=== PATIENT | female | born 1945 | race Caucasian/White ===

== ENCOUNTER 2019-11-27 14:47 | Outpatient (CLI) | payer OTHER, SELFPAY ==
--- NOTE | 2019-11-27 15:02 | XR_ITS ---
WS: [id number] EXAM: Chest: PA and lateral DATE OF EXAMINATION: 11/27/2019, 1511 hours COMPARISON: Chest x-ray from 11/20/2016 HISTORY: Patient is 74 years old with history of sarcoidosis. Abnormal weight loss. Cough.. FINDINGS: The heart size is normal. The mediastinal contours are normal. Pulmonary vascularity is within norm al limits. Chronic lung changes are seen. Slight hyperinflation. Slight fibrosis. Old calcified granu meet changes right mid chest with calcified lymph nodes right hilum. Additional calcified granuloma right lung apex. Multiple calcified lymph nodes are seen along the right paratracheal region and azyg os node region. No effusion, or pneumothorax. Bone density is decreased. Multilevel degenerative felix nges are seen in the spine. XR/XR chest 2V* [id number] IMPRESSION: Chronic lung changes with slight hyperinflation, fibrosis and old calcified gr anuloma changes. No acute pulmonary disease.
== END 2019-11-27 14:48 | disposition home or self-care (01) ==
LOC: RADWPI 14:47
PROVIDERS: PCP Nurse Practitioner Family; Visit Provider Nurse Practitioner Family
DX: R53.83 Other fatigue (principal); R05 Cough; D86.9 Sarcoidosis, unspecified; R63.4 Abnormal weight loss; R53.81 Other malaise; J84.10 Pulmonary fibrosis, unspecified
CPT/HCPCS: 71046

== ENCOUNTER 2019-12-04 10:47 | Outpatient (CLI) | payer MEDICARE, SELFPAY ==
--- NOTE | 2019-12-04 11:10 | XR_ITS ---
WS: [id number] ABDOMEN 2 VIEW(S) HISTORY: ABDOMINAL PAIN, BLOATING COMPARISON: None available. Diffuse increased air throughout the GI tract. Air is noted to the level of the rectum along with fec al material. Surgical sutures are noted over the central pelvis from prior colon surgery. No free air or mass identified. Prior cholecystectomy. No bone abnormality. XR/XR abdomen min 2V [id number] IMPRESSION: Diffuse increased air throughout the GI tract. No air-fluid levels or obstructi on at this time. These may be early changes of a partial obstruction or ileus. No free air.
== END 2019-12-04 10:48 | disposition home or self-care (01) ==
LOC: RADWPI 10:55
PROVIDERS: Family Provider Nurse Practitioner Family; PCP Nurse Practitioner Family; Visit Provider Nurse Practitioner Family
DX: R10.9 Unspecified abdominal pain (principal); R14.0 Abdominal distension (gaseous)
CPT/HCPCS: 74019

== ENCOUNTER → 2020-01-01 13:48 | Outpatient (BNVA) | payer MEDICARE, SELFPAY | PROVIDERS: Family Provider Nurse Practitioner Family; PCP Nurse Practitioner Family; Referring Provider Nurse Practitioner Family; Visit Provider Internal Medicine | DX: R00.1 Bradycardia, unspecified (principal); R63.4 Abnormal weight loss; R61 Generalized hyperhidrosis; D86.9 Sarcoidosis, unspecified; I10 Essential (primary) hypertension | CPT/HCPCS: 84439; 84443 ==

== ENCOUNTER 2020-03-11 11:23 | Outpatient (CLI) | payer MEDICARE, SELFPAY ==
[2020-03-11 12:34] LABS: Eosinophils % 12.9 %; Monocytes % 6.6 %; Nucleated Red Blood Cells % 0 %
[2020-03-11 12:49] LABS: Basophils % 0.6 %; Eosinophils # 0.8 10^3/uL (0.0-0.8); Hematocrit 27.1 % (37.0-47.0); Hemoglobin 8.5 g/dL (11.5-15.3); Lymphocytes # 1.4 10^3/uL (0.8-4.8); Lymphocytes % 21.8 %; Mean Corpuscular HGB Conc 31.4 g/dL (30.0-36.0); Mean Corpuscular Hemoglobin 28.3 pg (28.0-34.0); Mean Corpuscular Volume 90.3 fL (81-99); Mean Platelet Volume 11.9 fL (7.4-10.4); Monocytes # 0.4 10^3/uL (0.2-0.9); Neutrophils # 3.57 10^3/uL (1.8-7.7); Neutrophils % 57.8 %; Platelet Count 244 10^3/cmm (130-400); Red Cell Distribution Width 15.4 % (12.1-15.1); White Blood Count 6.2 10^3/uL (4.0-10.0)
[2020-03-11 12:56] LABS: Albumin Level 3.2 g/dL (3.5-5.2); Anion Gap 9.8 (5-19); Blood Urea Nitrogen 32 mg/dL (8-23); Calcium 9.3 mg/dL (8.5-10.5); Carbon Dioxide 28 mmol/L (22-29); Chloride 107 mmol/L (98-107); Glucose 101 mg/dL (65-115); Phosphorus 3.2 mg/dL (2.5-4.5); Potassium 4.8 mmol/L (3.5-5.1); Sodium 140 mmol/L (136-145)
[2020-03-11 13:11] LABS: Calcium 9.6 mg/dL (8.5-10.5); Parathyroid Hormone 33.3 pg/mL (15-65)
== END 2020-03-11 11:24 | disposition home or self-care (01) ==
LOC: LAB 11:27
PROVIDERS: PCP Internal Medicine; Visit Provider Internal Medicine Nephrology
DX: N18.30 Chronic kidney disease, stage 3 unspecified (principal)
CPT/HCPCS: 80069; 80197; 82310; 83970; 85025

== ENCOUNTER 2020-03-12 11:36 | Outpatient (CLI) | payer MEDICARE, SELFPAY ==
[2020-03-12 12:57] LABS: Creatinine Urine, Random 16 mg/dL (28-217)
[2020-03-12 12:58] LABS: Microalbum Creatinine Ratio Ur 62 mg/dL (0-20); Microalbumin Random Urine < 1 ug/dL (0-20)
== END 2020-03-12 11:37 | disposition home or self-care (01) ==
LOC: LAB 11:39
PROVIDERS: PCP Internal Medicine; Visit Provider Internal Medicine Nephrology
DX: N18.30 Chronic kidney disease, stage 3 unspecified (principal)
CPT/HCPCS: 82044

== ENCOUNTER 2020-03-16 11:40 | Outpatient (CLI) | payer MEDICARE, SELFPAY ==
[2020-03-16 13:28] LABS: Ferritin 17 ng/mL (15-150); Iron 47 ug/dL (37-145); Percent Saturation 12.4 % (20-50); Total Iron Binding Capacity 379 mcg/dl; Unsaturated Iron Binding 332 ug/dL (112-347); Vitamin B12 599 pg/mL (232-1245)
[2020-03-16 14:52] LABS: Folate Level 9.7 ng/mL (4.8-37.3)
== END 2020-03-16 11:41 | disposition home or self-care (01) ==
LOC: LAB 11:41
PROVIDERS: PCP Internal Medicine; Visit Provider Internal Medicine Nephrology
DX: N18.32 Chronic kidney disease, stage 3b (principal)
CPT/HCPCS: 82607; 82728; 82746; 83540; 83550

== ENCOUNTER → 2020-03-31 13:26 | Outpatient (BNVA) | payer MEDICARE, SELFPAY | PROVIDERS: PCP Internal Medicine; Visit Provider Surgery | DX: Z20.828 Contact with and (suspected) exposure to other viral communicable diseases (principal); R63.4 Abnormal weight loss | CPT/HCPCS: 87635 ==

== ENCOUNTER 2020-04-16 13:13 | Outpatient (CLI) | payer MEDICARE, SELFPAY ==
[2020-04-16 14:37] LABS: Basophils % 0.3 %; Eosinophils # 0.7 10^3/uL (0.0-0.8); Hematocrit 32.3 % (37.0-47.0); Hemoglobin 9.9 g/dL (11.5-15.3); Lymphocytes # 1.3 10^3/uL (0.8-4.8); Lymphocytes % 21.7 %; Mean Corpuscular HGB Conc 30.7 g/dL (30.0-36.0); Mean Corpuscular Hemoglobin 29.6 pg (28.0-34.0); Mean Corpuscular Volume 96.7 fL (81-99); Mean Platelet Volume 11.1 fL (7.4-10.4); Monocytes # 0.4 10^3/uL (0.2-0.9); Monocytes % 5.8 %; Nucleated Red Blood Cells % 0 %; Platelet Count 271 10^3/cmm (130-400); Red Blood Count 3.34 10^6/uL (4.1-5.3); Red Cell Distribution Width 16.4 % (12.1-15.1); White Blood Count 6.1 10^3/uL (4.0-10.0)
[2020-04-16 15:04] LABS: Magnesium 1.6 mg/dL (1.7-2.3)
[2020-04-16 15:17] LABS: Calcium 9.6 mg/dL (8.5-10.5)
[2020-04-16 15:19] LABS: Folate Level 9.5 ng/mL (4.8-37.3)
[2020-04-16 15:20] LABS: Alanine Aminotransferase 17 U/L (0-33); Albumin Level 3.2 g/dL (3.5-5.2); Alkaline Phosphatase 75 IU/L (35-105); Anion Gap 9.9 (5-19); Aspartate Amino Transferase 32 U/L (0-32); Blood Urea Nitrogen 26 mg/dL (8-23); Calcium 9.7 mg/dL (8.5-10.5); Carbon Dioxide 30 mmol/L (22-29); Chloride 107 mmol/L (98-107); Chol HDL Ratio 2.57 mg/dL (0.0-4.40); Cholesterol 95 mg/dL (0-200); Globulin 2.3 g/dL (1.3-4.6); Glucose 88 mg/dL (65-115); HDL Cholesterol 37 mg/dL (60-100); Iron 77 ug/dL (37-145); LDL Cholesterol Calculated 37 mg/dL (50-129); Osmolality Calculated 300 mOsm/kg (285-295); Percent Saturation 20.8 % (20-50); Phosphorus 2.9 mg/dL (2.5-4.5); Potassium 3.9 mmol/L (3.5-5.1); Sodium 143 mmol/L (136-145); Thyroid Stimulating Hormone 1.72 uIU/mL (0.27-4.20); Total Bilirubin 0.2 mg/dL (0.15-1.2); Total Iron Binding Capacity 370 mcg/dl; Total Protein 5.5 g/dL (6.6-8.7); Triglycerides 103 mg/dL (0-150); Unsaturated Iron Binding 293 ug/dL (112-347); Vitamin B12 698 pg/mL (232-1245)
[2020-04-16 15:47] LABS: Parathyroid Hormone 29.6 pg/mL (15-65)
[2020-04-17 01:01] LABS: Estmated Average Glucose 80; Hemoglobin A1C 4.4 % (4.0-6.0)
== END 2020-04-16 13:14 | disposition home or self-care (01) ==
PROVIDERS: PCP Internal Medicine; Visit Provider Surgery
DX: R63.4 Abnormal weight loss (principal); D64.9 Anemia, unspecified; E11.9 Type 2 diabetes mellitus without complications; I10 Essential (primary) hypertension
CPT/HCPCS: 36415; 80053; 80061; 82310; 82607; 82746; 83036; 83540; 83550; 83735; 83970; 84100; 84443; 85025

== ENCOUNTER 2020-05-19 07:32 | Day surgery (SDC) | payer MEDICARE, SELFPAY ==
[2020-05-17 15:32] VITALS: BMI 32.5
[2020-05-19 08:18] VITALS: BP 184/72; PULSE 80; RESP 16; TEMP 36.3; O2SAT 100
[2020-05-19] MEDS: sodium chloride 0.9% 1,000 ML 30 ML IV (08:42)
--- NOTE | 2020-05-19 09:02 | P.HP_ITS ---
Same Day Surgery H&P Indication for Procedure/HPI DATE OF PROCEDURE: May 19, 2020 CHIEF COMPLAINT/INDICATIONFOR SURGICAL PROCEDURE: Weight loss and anemia PREOP DIAGNOSIS: Nonintentional weight loss PLANNED PROCEDRUE: Operation Date: 05/19/20 08:45 Proposed Procedures p EGD 15171 17524 R63.4 K59.00(Not Applicable) - Lon Varghese MD s Colonoscopy(Not Applicable) - Lon Varghese MD comes today as a follow-up as she was supposed to get a colonoscopy by me at some point but in the interim she had cardiac symptoms in the form of bradycardia and she has been following with Dr. 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 Patient reports that she had a colonoscopy about 3 years ago at the time where she had her colon resection for complicated diverticulitis as much as I collected from the encounter, as I did not receive yet her operative report from [place].Because of the cardiac event patient's colonoscopy was postponed and in the interim she has been showing signs of anemia and nonintentional weight loss in the form of 25 pounds over the last short period of time. Patient comes today as a follow-up Escorted by her spouse. Interim history 05/19/2020 Comes today for EGD and colonoscopy due to her nonintentional weight loss and anemia. ROS All systems have been reviewed negative except as per the above or per problem list Medications/Allergies* Home Medications Medication Instructions Recorded Confirmed Type aspirin 81 mg tablet,delayed 81 mg PO DAILY 12/22/19 05/19/20 History release fenofibrate 150 mg capsule 150 mg PO DAILY 12/22/19 05/17/20 History fluticasone propionate 50 2 spray INTRANASAL DAILY 12/22/19 05/17/20 History mcg/actuation nasal spray,suspension furosemide 20 mg tablet 20 mg PO DAILY 12/22/19 05/17/20 History magnesium 250 mg tablet 250 mg PO DAILY 12/22/19 05/17/20 History selenium 200 mcg capsule 200 mcg PO DAILY 03/18/20 05/17/20 History polysaccharide iron complex 150 mg PO BID 05/19/20 05/19/20 History [Poly-Iron] Allergies/Adverse Reactions Allergy/AdvReac Type Severity Reaction Status Date / Time morphine Allergy Severe ALGY-Anaphy Verified 05/19/20 09:05 laxis Penicillins Allergy Severe ALGY-Hives Verified 05/19/20 09:05 Current Medications: Generic Name Dose Route Start Last Admin Trade Name Viridiana PRN Reason Stop Dose Admin Sodium Chloride 1,000 mls @ 30 mls/hr 05/19/20 08:15 05/19/20 08:42 Sodium Chloride 0.9% IV 05/20/20 08:14 30 mls/hr .Q24H GLORIA Administration Pertinent History/Comorbid Conditions* Medical History (Updated 02/04/20 @ 16:06 by Juan Kelly M.D) Abnormal weight loss Bloating Surgical History (Updated 01/01/20 @ 13:36 by Juan Kelly M.D) History of laparoscopic cholecystectomy Family History (Updated 12/22/19 @ 11:25 by Isa Fajardo RN) Denies family history of Anesthesia complication Bleeding disorder Social History Smoking and tobacco status: never smoked Second hand smoke exposure: No Alcohol intake: never Adopted: No Caregiver/support person: Yes Lives independently: Yes Household members: spouse Housing: House Marital status: service: No Current occupational status: retired Current occupational exposures/hazards: No Pets and animals: No History of recent travel: No Sexually active: No Current gender identity: Female Tessa/Spiritism: Sikhism Pertinent Exam Findings alert, oriented x 3, clear to auscultation bilaterally, regular rate & rhythm and procedure specific exam findings (Abdominal examination nontender nondistended soft) Recommendations Surgery/Procedure today (EGD and colonoscopy with possible biopsy) Other Plans: Plan of care; After thorough history and physical examination and reviewing the chart, plan to perform a diagnostic esophagogastroduodenoscopy and diagnostic colonoscopy with possible biopsy and possible polypectomy. I discussed with the patient in detail the risks,benefits,alternatives and indications.The risk of aspiration, bleeding, soft tissue injury, perforation of the stomach/esophagus/colon and other potential concomitant complications were explained to the patient in details also the potential need for Thoracotomy and or Laproscoy/Laparotomy to repair any related complications including but not limited to colectomy and or Closotomy. The patient understood this well and did agree to proceed. Rationale was carefully and clearly discussed with the patient.Appropriate informed consent have been reviewed and signed Verbal and written Instructions were given to the patient for colonoscopy prep Coding Level of Care Code Acute Tmd Teacher Assistant for g Fwd
--- NOTE | 2020-05-19 10:03 | P.ANESASSM_ITS ---
Pre-Anesthetic Assessment Pre-Anesthetic Assessment: Height/Weight: Height 1.57 m Weight 80.739 kg Temp Pulse Resp BP Pulse Ox 97.3 F L 80 16 184/72 100 05/19/20 08:18 05/19/20 08:18 05/19/20 08:18 05/19/20 08:18 05/19/20 08:18 Preop Diagnosis: Nonintentional weight loss Proposed Procedure: Operation Date: 05/19/20 08:45 Proposed Procedures p EGD 86005 32155 R63.4 K59.00(Not Applicable) - Lon Varghese MD s Colonoscopy(Not Applicable) - Lon Varghese MD Was Beta Radu taken within 24 hours: N/A Last intake: Intake Last Liquid Date 05/18/20 Last Liquid Time 18:00 Last Solid Date 05/17/20 Last Solid Time 19:00 Social: Social History: No alcohol and No tobacco Exam: Pre-Anes Outpt Exam: alert, oriented x 3, clear to auscultation bilaterally and regular rate & rhythm Airway: Submandibular: WNL Cervical ROM: WNL MP: 2 Dentition: Full CV/HEM: CV/HEM: HTN Musc/skel: Comments: Sarcoid Anesthetic Plan: ASA status: 3 Anesthesia: MAC Risk of > 500 ml blood loss (7ml/kg in children): No Meds/Allergies Current Medications: Current Medications Generic Name Dose Route Start Last Admin Trade Name Freq PRN Reason Stop Dose Admin Sodium Chloride 1,000 mls @ 30 ml s/hr 05/19/20 08:15 05/19/20 08:42 Sodium Chloride 0.9% IV 05/20/20 08:14 30 mls/hr .Q24H GLORIA Administration PFSH Anesthesia PFSH: Medical History (Updated 04/16/20 @ 13:42 by Estrella Chew LPN) Abnormal weight loss Bloating Surgical History History of laparoscopic cholecystectomy Family History Denies family history of Anesthesia complication Bleeding disorder Social History Smoking and tobacco status: never smoked Second hand smoke exposure: No Alcohol intake: never Adopted: No Caregiver/support person: Yes Lives independently: Yes Household members: spouse Housing: House Marital status: service: No Current occupational status: retired Current occupational exposures/hazards: No Pets and animals: No History of recent travel: No Sexually active: No Current gender identity: Female Tessa/Yazidi: Denominational Data Anesthesia Cardiac Studies: Cardiac Event Monitor 01/02/20
--- NOTE | 2020-05-19 10:46 | ANE.PACU2 ---
Inpatient post-anesthesia follow up: Airway intact: Yes Vital signs: Temperature 97.3 F Pulse Rate 80 Respiratory Rate 16 Blood Pressure 184/72 Pulse Oximetry 100 Oxygen Delivery Me thod Room Air Oxygen Flow Rate Fraction of Inspir ed Oxygen Hydration adequate: Yes Nausea and vomiting: No Pain level: 1 Mental status: Baseline
[2020-05-19 10:47] VITALS: BP 125/57; PULSE 74; RESP 18; TEMP 36.2; O2SAT 96
[2020-05-19 11:28] VITALS: BP 149/89; PULSE 78; RESP 18; O2SAT 96
--- NOTE | 2020-05-19 11:57 | ANE.PACU2 ---
Inpatient post-anesthesia follow up: Airway intact: Yes Vital signs: Temperature 97.2 F Pulse Rate 78 Respiratory Rate 18 Blood Pressure 149/89 Pulse Oximetry 96 Oxygen Delivery Me thod Room Air Oxygen Flow Rate Fraction of Inspir ed Oxygen Hydration adequate: Yes Nausea and vomiting: No Pain level: 1 Mental status: Baseline
[2020-05-20 06:03] LABS: H. Pylori / CLO Test Negative
== END 2020-05-19 11:20 | disposition home or self-care (01) ==
PROVIDERS: PCP Internal Medicine; Visit Provider Surgery
PROC: 0DJ08ZZ Inspection of Upper Intestinal Tract, Via Natural or Artificial Opening Endoscopic (ICD-10-PCS; CPT 43235; principal; 2020-05-19 08:45)
PROC: 0DJD8ZZ Inspection of Lower Intestinal Tract, Via Natural or Artificial Opening Endoscopic (ICD-10-PCS; CPT 45378; 2020-05-19 08:45)
DX: R63.4 Abnormal weight loss (principal); K44.9 Diaphragmatic hernia without obstruction or gangrene; K21.9 Gastro-esophageal reflux disease without esophagitis; K29.70 Gastritis, unspecified, without bleeding; K29.80 Duodenitis without bleeding; T18.128A Food in esophagus causing other injury, initial encounter; Z68.32 Body mass index [BMI] 32.0-32.9, adult; D64.9 Anemia, unspecified; Z79.82 Long term (current) use of aspirin; I10 Essential (primary) hypertension; Z87.19 Personal history of other diseases of the digestive system
CPT/HCPCS: 12345; 43239; 45378; 87077; J2704; J7030

== ENCOUNTER 2020-05-31 10:50 | Outpatient (CLI) | payer MEDICARE, SELFPAY ==
--- NOTE | 2020-05-31 11:29 | XR_ITS ---
WS: [id number] LUMBAR SPINE: 5 VIEWS TECHNIQUE: AP, obliques, lateral and L5-S1 spot. HISTORY: LOW BACK PAIN, CHRONIC COMPARISON: None available. Mild LEFT convex curvature the lumbar spine. 5 mm anterolisthesis of L4. Facet joint arthritis is mod erate at L5-S1. Diffuse osteopenia with no fractures. Small endplate osteophytes. The lumbar spine. M ild bilateral foraminal stenosis at L4-5 and L5-S1. No fracture. SI joints are symmetric bilaterally. No soft tissue abnormalities. Prior cholecystectomy. Increased air throughout the GI tract. XR/XR lumbar spine min 4V [id number] IMPRESSION: 1. Moderate degenerative changes throughout the lumbar spine with no fracture. 2. Bilateral foraminal narrowing at L4-5 and L5-S1. 3. Prior cholecystectomy.
== END 2020-05-31 10:51 | disposition home or self-care (01) ==
PROVIDERS: PCP Internal Medicine; Visit Provider Nurse Practitioner Family
DX: M54.5 Low back pain (principal); Z90.49 Acquired absence of other specified parts of digestive tract
CPT/HCPCS: 72110

== ENCOUNTER 2020-06-24 09:50 | Outpatient (CLI) | payer MEDICARE, SELFPAY ==
--- NOTE | 2020-06-24 09:55 | US_ITS ---
WS: [id number] ULTRASOUND ABDOMEN CLINICAL INFORMATION: ABDOMINAL PAIN/BLOATING COMPARISON: None. FINDINGS: Suggestion of a 2 mm calculus in the distal common bile duct head of the pancreas. This is of indeterminate clinical significance. This can be further evaluated with MRCP Liver Size: Normal. Craniocaudal length: 13.6 cm. Echogenicity: Normal. Surface nodularity: None. Mass (size and location): None. Bile ducts Intrahepatic ducts: Normal. Common bile duct diameter: 0.7 cm. Gallbladder Prior cholecystectomy. Pancreas Normal as visualized. Spleen Splenomegaly: None. Craniocaudal length: 9.5 cm. Right kidney: Normal. Hydronephrosis: None. Size: 8.8 cm x 4.4 cm x 4.4 cm Left kidney: Normal. Hydronephrosis: None. Size: 9.7 cm x 3.9 cm x 4.2 cm. Abdominal aorta and IVC Visualized portions are normal. Ascites: None. US/US abdomen complete* [id number] IMPRESSION: 1. Normal liver. 2. Suggestion of a 2 mm calculus in the distal common bile duct head of the pa ncreas. This is of indeterminate clinical significance. This can be further oneil luated with MRCP 3. Prior cholecystectomy. Normal common bile duct measuring 6.6 mm. No intrahe patic biliary ductal dilatation. 4. No hydronephrosis in either kidney.
== END 2020-06-24 09:51 | disposition home or self-care (01) ==
LOC: RAD 09:51
PROVIDERS: PCP Nurse Practitioner Family; Visit Provider Nurse Practitioner Family
DX: R10.9 Unspecified abdominal pain (principal); R14.0 Abdominal distension (gaseous); Z90.49 Acquired absence of other specified parts of digestive tract
CPT/HCPCS: 76700

== ENCOUNTER 2020-07-12 10:34 | Outpatient (CLI) | payer MEDICARE, SELFPAY ==
--- NOTE | 2020-07-12 11:15 | MR_ITS ---
WS: [id number] MRI/MRCP OF THE ABDOMEN WITHOUT GADOLINIUM ENHANCEMENT TECHNIQUE: Thin and thick slab MRCP, Axial T2, Coronal MRCP, Axial Dual Echo, and Axial 2-D Fiesta imaging was obtained. Coronal 2-D Fiesta imaging. CLINICAL INFORMATION: CALCULUS OF BILE DUCT W/O CHOLECYSTITIS OR OBSTRUCTION COMPARISON: Ultrasound June 24, 2020 FINDINGS: Prior cholecystectomy. Mild fatty atrophy of the pancreas. Bilateral renal cortical atrophy. No intra hepatic biliary ductal dilatation. Common bile duct is normal in appearance. No bile duct dilatation. No abnormal foci to correspond to the possible 2 mm calculus on the recent ultrasound. Normal taperi ng of the common bile duct distally. Head of the pancreas appears normal. Tiny right pleural effusion . No hydronephrosis in either kidney. Normal caliber abdominal aorta. Adrenal glands appear normal. MR/MR MRCP [id number] Impression: 1. No evidence of choledocholithiasis. No filling defects to correspond to the tiny focus seen on the recent ultrasound. Normal common bile duct. 2. Pancreas is normal in appearance. 3. No intrahepatic biliary ductal dilatation. 4. No other significant findings.
== END 2020-07-12 10:35 | disposition home or self-care (01) ==
LOC: RADSHAW 10:37
PROVIDERS: PCP Nurse Practitioner Family; Visit Provider Internal Medicine
DX: K80.50 Calculus of bile duct without cholangitis or cholecystitis without obstruction (principal); R93.5 Abnormal findings on diagnostic imaging of other abdominal regions, including retroperitoneum; R10.9 Unspecified abdominal pain; R14.0 Abdominal distension (gaseous)
CPT/HCPCS: 74181

== ENCOUNTER 2020-08-18 12:28 | Outpatient (CLI) | payer MEDICARE, SELFPAY ==
--- NOTE | 2020-08-18 12:50 | CT_ITS ---
WS: [id number] CT ABDOMEN PELVIS TECHNIQUE: Noncontrast CT of the abdomen and pelvis with coronal and sagittal reformatted images. CLINICAL INFORMATION: NAUSEA AND VOMITING;ABDOMINAL PAIN COMPARISON: MRCP 10 Aug 2020 DLP: 415.[address] scans at [facility] use at least one of these dose optimization techniques: automat ed exposure control; mA and/or kV adjustment per patient size (includes targeted exams where dose is matched to clinical indication); or iterative reconstruction. FINDINGS: Hepatic and splenic granulomas. Normal noncontrast liver. No intrahepatic biliary ductal dilatation. Prior cholecystectomy. Fatty atrophy pancreas. Bilateral renal cortical atrophy. No hydronephrosis. Emphysematous changes in the lung bases. Normal GE junction. Adrenal glands are normal. No hydronephr osis. Normal caliber abdominal aorta. Mild to moderate aortic calcification. Diffuse body wall anasarca. Moderate distention of small bowel loops in the upper abdomen midabdomen with air-fluid levels. Persistent air within the colon. Hysterectomy. Trace free fluid in the pelvis. Grade 1 anterolisthesis L4 on L5. A few prominent lymph nodes along the central mesentery likely reac tive. CT/CT abdomen pelvis wo con [id number] IMPRESSION: 1. Moderate distention small bowel loops in the upper and midabdomen with air- fluid levels. Persistent air within the colon. No visualized transition point. Findings can be seen with adynamic ileus versus developing partial small bowel obstruction. Recommend interval follow-up if persistent symptoms 2. Delayed gastric emptying with majority of the oral contrast in the stomach and proximal duodenum. 3. No free air. 4. A few prominent lymph nodes along the mesenteric root likely reactive. 5. Prior hysterectomy. Trace free fluid in the cul-de-sac. 6. Prior cholecystectomy. 7. Normal caliber abdominal aorta. 8. No hydronephrosis in either kidney. Mild renal cortical atrophy.
[2020-08-18] MEDS: iohexol 300 mg/mL 50 mL Btl PO (14:18)
== END 2020-08-18 12:29 | disposition home or self-care (01) ==
LOC: RADWPI 12:31
PROVIDERS: PCP Internal Medicine; Visit Provider Internal Medicine
DX: R11.2 Nausea with vomiting, unspecified (principal); R10.9 Unspecified abdominal pain; N26.1 Atrophy of kidney (terminal); Z90.49 Acquired absence of other specified parts of digestive tract; Z90.710 Acquired absence of both cervix and uterus
CPT/HCPCS: 74176; Q9967

== ENCOUNTER 2020-08-19 07:45 | Outpatient (CLI) | payer MEDICARE, SELFPAY ==
--- NOTE | 2020-08-19 07:51 | NM_ITS ---
WS: [id number] NUCLEAR MEDICINE GASTRIC EMPTYING EXAMINATION HISTORY: NAUSEA VOMITING/ABDOMINAL PAIN COMPARISON: CT 08/18/2020 TECHNIQUE: The patient ingested a meal containing 1.0 mCi of Tc 99m sulfur colloid mixed with eggs. The patient was placed in supine position and imaging over the abdomen was performed for a total of 1 20 minutes. Computer acquisition with the region of interest placed over the stomach to evaluate man andreea emptying half-time. Delayed excretion of the food products from the stomach. At 2 hours only 30% has been excreted from t he stomach. This is consistent with moderate delay in emptying of the stomach. NM/[place] [id number] IMPRESSION: Moderate gastroparesis. Only 30% has emptied from the stomach at 2 hours.
== END 2020-08-19 07:46 | disposition home or self-care (01) ==
LOC: NM 07:48
PROVIDERS: PCP Internal Medicine; Visit Provider Internal Medicine
DX: R11.2 Nausea with vomiting, unspecified (principal); R10.9 Unspecified abdominal pain; K31.84 Gastroparesis
CPT/HCPCS: 78264; A9541

== ENCOUNTER 2020-08-20 13:27 | Outpatient (CLI) | payer MEDICARE, SELFPAY ==
--- NOTE | 2020-08-20 13:32 | XR_ITS ---
WS: [id number] Bone mineral density performed on a [employer], 08/20/2020 Clinical data: NATURAL AGE RELATED MENOPAUSAL STATE Findings: The first 4 lumbar vertebral bodies demonstrated the bone mineral density of 1.313 g/cm2 for a young adult T score of 1.1. Measurement of the left hip reveals a bone mineral density of 1.006 g/cm2 with a young adult T score of 0.0. Measurement of the right hip reveals the bone mineral density of 1.041 g/cm2 for young adult T score of 0.3. XR/XR DEXA axial skeleton* [id number] Impression: Normal bone mineral density of the lumbar spine and both hips.
== END 2020-08-20 13:28 | disposition home or self-care (01) ==
PROVIDERS: PCP Internal Medicine; Visit Provider Internal Medicine
DX: Z78.0 Asymptomatic menopausal state (principal)
CPT/HCPCS: 77080

== ENCOUNTER 2020-09-02 15:37 | Outpatient (CLI) | payer MEDICARE, SELFPAY ==
--- NOTE | 2020-09-02 15:51 | USCV_ITS ---
Elizabeth Sanders Age: 75 Gender: F : 1945 Exam Date: 09/02/2020 16:00 Ordering Phys: Rima Brown MD Technologist: Caroline Ferris Exam Location: [facility] [place] Indication: Murmur BP: 116 / 60 HR: 69 Rhythm: Sinus Technical Quality: Good MEASUREMENTS (Male / Female) Normal Values 2D ECHO LV Diastolic Diameter PLAX 4.2 cm 4.2 - 5.9 / 3.9 - 5.3 cm LV Systolic Diameter PLAX 2.4 cm LV Chamber Size 3.7 cm IVS Diastolic Thickness 1.2 cm 0.6 - 1.0 / 0.6 - 0.9 cm IVS Systolic Thickness 1.9 cm LVPW Diastolic Thickness 1.0 cm 0.6 - 1.0 / 0.6 - 0.9 cm LVPW Systolic Thickness 1.4 cm RV Chamber Size 2.3 cm LVOT Diameter 1.7 cm LV Ejection Fraction 2D Teich 73.9 % LV Ejection Fraction MOD 2C 82.7 % LV Ejection Fraction 2C AL 85.5 % LA Diameter 3.2 cm LA Width 2.6 cm LA Height 5.5 cm RA Width 2.5 cm RA Height 5.0 cm Aorta at Sinotubular Diameter 2.3 cm M-MODE LV Diastolic Diameter MM 5.0 cm 4.2 - 5.9 / 3.9 - 5.3 cm LV Systolic Diameter MM 2.7 cm LV Ejection Fraction MM Teich 76.5 % IVS Diastolic Thickness MM 1.0 cm 0.6 - 1.0 / 0.6 - 0.9 cm IVS Systolic Thickness MM 1.5 cm LVPW Diastolic Thickness MM 1.0 cm 0.6 - 1.0 / 0.6 - 0.9 cm LVPW Systolic Thickness MM 1.7 cm RV Diastolic Diameter MM 0.9 cm Aortic Annulus Diameter 3.0 cm LA Ao Ratio MM 1.4 MV E Point Septal Separation 0.3 cm DOPPLER AV Peak Velocity 181.0 cm/s LVOT Peak Velocity 152.0 cm/s AV Area Cont Eq vti 2.2 cm squared AV Area Cont Eq pk 2.0 cm squared MV Area PHT 4.1 cm squared Mitral E to A Ratio 0.9 MV E' Velocity 65.5 cm/s Mitral E to MV E' Ratio 14.5 Mitral E to LV E' Lateral Ratio 13.5 Mitral E to LV E' Septal Ratio 15.8 TR Peak Velocity 295.3 cm/s TR Peak Gradient 34.9 mmHg TR Mean Velocity 231.5 cm/s TR Mean Gradient 22.3 mmHg TR Velocity Time Integral 95.5 cm TV Peak E Velocity 52.0 cm/s Right Atrial Pressure 3.0 mmHg Pulmonary Artery Systolic Pressu 37.9 mmHg PV Peak Velocity 121.0 cm/s RV Acceleration Time 0.1 s RV Ejection Time 0.3 s RV AcT/ET 0.5 FINDINGS Left Ventricle Normal left ventricular size, systolic function and mildly increased wall thickness, with no regional wall motion abnormalities. Left ventricular ejection fraction is estimated at 75 %. Normal diastolic function. Right Ventricle Normal right ventricular size and systolic function. Right ventricular systolic pressure 41 mmHg. Right Atrium Normal right atrial size. Left Atrium Normal left atrial size. Mitral Valve Structurally normal mitral valve. No mitral valve stenosis. Mild to moderate mitral valve regurgitation. Aortic Valve Structurally normal trileaflet aortic valve. No aortic valve stenosis. No aortic valve regurgitation. Tricuspid Valve Structurally normal tricuspid valve. No tricuspid valve stenosis. Mild tricuspid valve regurgitation. Pulmonic Valve Structurally normal pulmonic valve. No pulmonary valve stenosis. Trace pulmonary valve regurgitation. Pericardium No pericardial effusion. Aorta Normal size aortic root and proximal ascending aorta. Normal sized inferior vena cava with normal respiratory variation. CONCLUSIONS 1. Normal left ventricular size, systolic function and wall thickness, with no regional wall motion abnormalities. Left ventricular ejection fraction is estimated at 75 %. Normal diastolic function. 2. Normal right ventricular size and systolic function. 3. Mild to moderate mitral valve regurgitation. 4. Mild tricuspid valve regurgitation. 5. Pulmonary artery pressure estimated at 41 mm Hg. 6. When compared to previous echocardiogram dated 11/21/2016, there may not have been any significant change. Madeleine Mahan MD (Electronically Signed) Final Date: 05 Sep 2020 18:20 S
== END 2020-09-02 15:38 | disposition home or self-care (01) ==
LOC: RAD 15:40
PROVIDERS: PCP Internal Medicine; Visit Provider Internal Medicine
DX: R01.1 Cardiac murmur, unspecified (principal); I34.0 Nonrheumatic mitral (valve) insufficiency; I07.1 Rheumatic tricuspid insufficiency
CPT/HCPCS: 93306

== ENCOUNTER 2020-09-12 18:22 | Emergency (ER) | payer MEDICARE, SELFPAY ==
[2020-09-12 18:45] VITALS: BP 164/73; PULSE 86; RESP 18; TEMP 39.2; O2SAT 95; BMI 22.6
--- NOTE | 2020-09-12 19:20 | XRR_ITS ---
PROCEDURE INFORMATION: Exam: XR Chest Exam date and time: 09/12/2020 7:32 PM Age: 75 years old Clinical indication: Fever TECHNIQUE: Imaging protocol: XR of the chest. Views: 1 view. COMPARISON: CR XR chest 2V* [id number] 11/27/2019 3:08 PM FINDINGS: Lungs: Densely calcified circumscribed right lung granuloma is stable. No focal airspace consolidation. No vascular dilation. Pulmonary interstitium is unremarkable. Pleural spaces: Unremarkable. No pleural effusion. No pneumothorax. Heart/Mediastinum: Unremarkable. No cardiomegaly. Bones/joints: Unremarkable. XR/XR chest 1V portable [id number] IMPRESSION: 1. No acute findings. 2. No changes from comparison.
[2020-09-12] MEDS: acetaminophen 325 mg Tablet 650 MG PO (19:31)
--- NOTE | 2020-09-12 19:35 | ED_ITS ---
HPI - Fever General: Chief Complaint: Fever Stated Complaint: FEVER Time Seen by Provider: 09/12/20 19:20 History of Present Illness: HPI Narrative: 75-year-old female comes in today for concerns of chills and shaking. Patient reports that she has had some chi lls with some shaking throughout the day but it was really worse tonight and she called EMS for assistance. Arrival by EMS it was noted patient had 102 fever. Patient was brought to the ER for further evaluation. Patient denies any cough, shortness of breath, or changes in bowel or urine. Patient does have a history of gastritis that she is being treated for and chronic kidney disease. MD elicited complaint: fever Review of Systems General: Reports: 10 or more systems reviewed and unremarkable except in HPI and below Const: Reports: fever(s) PFSH ED PFSH: Medical History Abnormal weight loss Bloating Hiatal hernia Surgical History History of laparoscopic cholecystectomy Family History Denies family history of Anesthesia complication Bleeding disorder Social History Smoking and tobacco status: never smoked Second hand smoke exposure: No Alcohol intake: never Adopted: No Caregiver/support person: Yes Lives independently: Yes Household members: spouse Housing: House Marital status: service: No Current occupational status: retired Current occupational exposures/hazards: No Pets and animals: No History of recent travel: No Sexually active: No Current gender identity: Female Tessa/Congregation: Confucian[employer] Physical Exam Const: COMMON NORMALS: no acute distress and patient oriented x3 GENERAL APPEARANCE: cooperative HENMT: COMMON NORMALS: normocephalic and Normal external nose present HEAD & SCALP: normal to inspection and normocephalic NOSE: Normal external nose present MOUTH: Normal oral and palatal mucosa present THROAT: posterior oropharynx normal Eye: GENERAL EYE: appearance normal, both eyes and all related structures Neck/C-Spine: COMMON NORMALS: full ROM Lymph: LYMPHATIC: no lymphadenopathy noted Chest: COMMONS NORMALS: normal inspection of the chest Resp: COMMON NORMALS: normal respiratory effort EFFORT & INSPECTION: Yes able to speak in complete sentences Cardio: COMMON NORMALS: regular rate and regular rhythm RATE: regular rate RHYTHM: regular rhythm HEART SOUNDS: Murmur heart sound present GI: COMMON NORMALS: Soft to palpation PALPATION: Yes Soft to palpation and Yes Tenderness to palpation present (GI) (Epigastric) : COMMON NORMALS: Yes no CVA tenderness BLADDER/KIDNEY EXAM: Yes no CVA tenderness Back/Pelvis: COMMON NORMALS: no CVA tenderness and thoracic and lumbar spine normal to inspection Extremity: COMMON NORMALS: normal to inspection Neuro: COMMON NORMALS: patient oriented x3 and moves all extremities Psych: COMMON NORMALS: mental status grossly normal and cooperative Skin: COMMON NORMALS: no rashes or lesions noted GENERAL SKIN EXAM: no rashes or lesions noted Course Vital Signs: Vital signs: Vital Signs Temperature 102.5 F H 09/12/20 18:45 Pulse Rate 86 09/12/20 18:45 Respiratory Rate 18 09/12/20 18:45 Blood Pressure 164/73 09/12/20 18:45 Pulse Oximetry 95 09/12/20 18:45 MDM - Fever MDM Narrative: Medical decision making narrative: Patient comes in today for concerns of elevated temperature. On exam patient has some abdominal tenderness. Respirations are even lungs were clear to auscultation. Temperature was 102. Patient denies any other abnormalities except the chills and shakes. Differential diagnosis includes not limited to influenza, strep pharyngitis, sepsis, urinary tract infection, diverticulitis. Patient was given Tylenol for fever which got under control. CBC showed a mild elevation in leukocytosis at 10,000, CMP was unremarkable, urinalysis did have some large number of white blood cells but also had some squamous cells in the may have indicated a contamination. Blood cultures and urine culture and throat culture were sent. CT of the abdomen pelvis showed no significant abnormality. I suspect patient may have a urinary tract infection we will go ahead and treat with Cipro 500 twice a day for 7 days. Also recommend patient follow-up with primary care in 2 to 3 days for recheck. Patient should continue with Tylenol and make sure she drinks plenty of fluids. Patient reported understanding agreed to plan. Patient looked nontoxic. Patient reported no tick bites, and no elevation in liver enzymes suggested such. It may just be the urinary tract infection but patient needs to be monitored closely. Patient reported understanding of recommendations, and agreed to plan. Lab Data: Labs: Lab Results 09/12/20 09/12/20 09/12/20 Range/Units 20:42 20:42 20:42 WBC 10.2 H (4.0-10.0) 10^3/ uL RBC 2.97 L (4.1-5.3) 10^6/u L Hgb 9.0 L (11.5-15.3) g/dL Hct 28.2 L (37.0-47.0) % MCV 94.9 (81-99) fL MCH 30.3 (28.0-34.0) pg MCHC 31.9 (30.0-36.0) g/dL RDW 14.1 (12.1-15.1) % Plt Count 237 (130-400) 10^3/c mm MPV 10.6 H (7.4-10.4) fL Neut % (Auto) 85.8 % Lymph % (Auto) 6.6 % Jennings % (Auto) 6.6 % Eos % (Auto) 0.5 % Baso % (Auto) 0.2 % Neut # (Auto) 8.77 H (1.8-7.7) 10^3/u L Lymph # (Auto) 0.7 L (0.8-4.8) 10^3/u L Jennings # (Auto) 0.7 (0.2-0.9) 10^3/u L Eos # (Auto) 0.1 (0.0-0.8) 10^3/u L Baso # (Auto) 0.0 (0.0-0.1) 10^3/u L Nucleated RBC % (a uto) 0 % Nucleated RBCs # 0.0 /100WBC Sodium 139 (136-145) mmol/L Potassium 3.4 L (3.5-5.1) mmol/L Chloride 108 H (98-107) mmol/L Carbon Dioxide 21 L (22-29) mmol/L Anion Gap 13.4 (5-19) BUN 23 (8-23) mg/dL Creatinine 0.7 (0.5-0.9) mg/dL GFR Calculation Not Reportable Glucose 93 (65-115) mg/dL Calculated Osmolal ity 291 (285-295) mOsm/k g Calcium 8.1 L (8.5-10.5) mg/dL Total Bilirubin 0.3 (0.15-1.2) mg/dL AST 25 (0-32) U/L ALT 20 (0-33) U/L Alkaline Phosphata se 73 (35-105) IU/L Total Protein 4.9 L (6.6-8.7) g/dL Albumin 3.0 L (3.5-5.2) g/dL Globulin 1.9 (1.3-4.6) g/dL Lipase 44 (13-60) U/L Urine Color (Yellow) Urine Appearance (CLEAR) Urine pH (5-7) Ur Specific Gravit y (1.005-1.030) Urine Protein (Negative) Urine Glucose (UA) (Normal) Urine Ketones (Negative) Urine Blood (Negative) Urine Nitrate (Negative) Urine Bilirubin (Negative) Urine Urobilinogen (Negative) mg/dL Ur Leukocyte Savita ase (Negative) Urine RBC (0-2) /hpf Urine WBC (0-5) /hpf Ur Squamous Epith Cells (0-5) /hpf Amorphous Sediment Urine Bacteria (NONE) /hpf Influenza Type A A g (Negative) Influenza Type B A g (Negative) Group A Strep Rapi d Negative (Negative) 09/12/20 09/12/20 Range/Units 20:42 21:50 WBC (4.0-10.0) 10^3/ uL RBC (4.1-5.3) 10^6/u L Hgb (11.5-15.3) g/dL Hct (37.0-47.0) % MCV (81-99) fL MCH (28.0-34.0) pg MCHC (30.0-36.0) g/dL RDW (12.1-15.1) % Plt Count (130-400) 10^3/c mm MPV (7.4-10.4) fL Neut % (Auto) % Lymph % (Auto) % Jennings % (Auto) % Eos % (Auto) % Baso % (Auto) % Neut # (Auto) (1.8-7.7) 10^3/u L Lymph # (Auto) (0.8-4.8) 10^3/u L Jennings # (Auto) (0.2-0.9) 10^3/u L Eos # (Auto) (0.0-0.8) 10^3/u L Baso # (Auto) (0.0-0.1) 10^3/u L Nucleated RBC % (a uto) % Nucleated RBCs # /100WBC Sodium (136-145) mmol/L Potassium (3.5-5.1) mmol/L Chloride (98-107) mmol/L Carbon Dioxide (22-29) mmol/L Anion Gap (5-19) BUN (8-23) mg/dL Creatinine (0.5-0.9) mg/dL GFR Calculation Glucose (65-115) mg/dL Calculated Osmolal ity (285-295) mOsm/k g Calcium (8.5-10.5) mg/dL Total Bilirubin (0.15-1.2) mg/dL AST (0-32) U/L ALT (0-33) U/L Alkaline Phosphata se (35-105) IU/L Total Protein (6.6-8.7) g/dL Albumin (3.5-5.2) g/dL Globulin (1.3-4.6) g/dL Lipase (13-60) U/L Urine Color Yellow (Yellow) Urine Appearance Sl cloudy A (CLEAR) Urine pH 5 (5-7) Ur Specific Gravit y 1.020 (1.005-1.030) Urine Protein Neg (Negative) Urine Glucose (UA) Norm (Normal) Urine Ketones Negative (Negative) Urine Blood Neg (Negative) Urine Nitrate Negative (Negative) Urine Bilirubin Neg (Negative) Urine Urobilinogen Norm (Negative) mg/dL Ur Leukocyte Savita ase Negative (Negative) Urine RBC None (0-2) /hpf Urine WBC 0-4 H (0-5) /hpf Ur Squamous Epith Cells 15-25 H (0-5) /hpf Amorphous Sediment Not Reportable Urine Bacteria 4+ H (NONE) /hpf Influenza Type A A g Negative (Negative) Influenza Type B A g Negative (Negative) Group A Strep Rapi d (Negative) Discharge Plan Discharge Patient Disposition: Home Clinical Impression: Fever of unknown origin, High urine white blood cell count Condition: Stable Prescriptions: New ciprofloxacin HCl 500 mg tablet 500 mg PO BID Qty: 14 RF: 0 No Action amlodipine 2.5 mg tablet 2.5 mg PO DAILY Qty: 90 RF: 3 selenium 200 mcg capsule 200 mcg PO DAILY RF: 0 fenofibrate 150 mg capsule 150 mg PO DAILY RF: 0 furosemide [Lasix] 20 mg tablet 20 mg PO DAILY RF: 0 aspirin 81 mg tablet,delayed release (DR/EC) 81 mg PO DAILY RF: 0 Hold Instructions: Resume on 05/22/20. magnesium 250 mg tablet 250 mg PO DAILY RF: 0 fluticasone propionate [Flonase Allergy Relief] 50 mcg/actuation spray,suspension 2 spray INTRANASAL DAILY RF: 0 Poly-Iron 150 mg iron capsule 150 mg PO BID RF: 0 Protonix 40 mg tablet,delayed release (DR/EC) 40 mg PO DAILY 30 Days Qty: 30 RF: 2 Discharge Orders: Discharge ED (Routine); Ordered 09/13/20 Ordered By: Lewis Serna Referrals: Rima Brown MD [Primary Care Provider] - Discharge Diet: Usual diet Discharge Activity: Increase activity as tolerated Patient Instructions: Fever in Adults (ED), Opioid Safety Activity Restrictions/Additional Instructions: Drink plenty of water. Healthy diet and exercise. Follow-up with primary care in the morning. Return to the ED for new concerns. Coding Level of Care Code ED Infusion Nurse for Connor Fwd Exam Comprehensive
[2020-09-12 20:50] VITALS: BP 150/61; RESP 18; O2SAT 95
[2020-09-12 21:06] LABS: Basophils % 0.2 %; Eosinophils # 0.1 10^3/uL (0.0-0.8); Eosinophils % 0.5 %; Hematocrit 28.2 % (37.0-47.0); Lymphocytes # 0.7 10^3/uL (0.8-4.8); Lymphocytes % 6.6 %; Mean Corpuscular HGB Conc 31.9 g/dL (30.0-36.0); Mean Corpuscular Hemoglobin 30.3 pg (28.0-34.0); Mean Corpuscular Volume 94.9 fL (81-99); Mean Platelet Volume 10.6 fL (7.4-10.4); Monocytes # 0.7 10^3/uL (0.2-0.9); Monocytes % 6.6 %; Neutrophils # 8.77 10^3/uL (1.8-7.7); Neutrophils % 85.8 %; Nucleated Red Blood Cells % 0 %; Platelet Count 237 10^3/cmm (130-400); Red Blood Count 2.97 10^6/uL (4.1-5.3); Red Cell Distribution Width 14.1 % (12.1-15.1); White Blood Count 10.2 10^3/uL (4.0-10.0)
[2020-09-12 21:12] LABS: Rapid Strep A Test Negative (Negative)
[2020-09-12 21:22] LABS: Alanine Aminotransferase 20 U/L (0-33); Alkaline Phosphatase 73 IU/L (35-105); Anion Gap 13.4 (5-19); Aspartate Amino Transferase 25 U/L (0-32); Blood Urea Nitrogen 23 mg/dL (8-23); Calcium 8.1 mg/dL (8.5-10.5); Carbon Dioxide 21 mmol/L (22-29); Chloride 108 mmol/L (98-107); Globulin 1.9 g/dL (1.3-4.6); Glucose 93 mg/dL (65-115); Lipase 44 U/L (13-60); Osmolality Calculated 291 mOsm/kg (285-295); Potassium 3.4 mmol/L (3.5-5.1); Sodium 139 mmol/L (136-145); Total Bilirubin 0.3 mg/dL (0.15-1.2); Total Protein 4.9 g/dL (6.6-8.7)
[2020-09-12 21:25] LABS: Influenza A by IFA Negative (Negative); Influenza B by IFA Negative (Negative)
[2020-09-12 22:15] LABS: Add Urine Microscopic? YES; Bilirubin Urine Neg (Negative); Blood Urine Neg (Negative); Glucose Urine UA Norm (Normal); Ketones Urine Negative (Negative); Leukocyte Esterase Urine Negative (Negative); Nitrate Urine Negative (Negative); Protein Urine Neg (Negative); Urine Color Yellow (Yellow); Urobilinogen Urine Norm (Negative); pH Urine 5 (5-7)
[2020-09-12 22:16] LABS: Add Urine Culture? No; Bacteria Urine 4+ /hpf; Squamous Epithelial Cell Urine 15-25 /hpf (0-5); WBC Urine 0-4 /hpf (0-5)
--- NOTE | 2020-09-12 22:25 | CTR_ITS ---
PROCEDURE INFORMATION: Exam: CT Abdomen And Pelvis With Contrast Exam date and time: 09/12/2020 10:35 PM Age: 75 years old Clinical indication: Abdominal pain; Localized; Left; Prior surgery; Surgery date: 6+ months; Surgery type: Gb, colon, hyst; Patient HX: C/O L sided abd pain and fever; Additional info: Abd pain, fever TECHNIQUE: Imaging protocol: Computed tomography of the abdomen and pelvis with contrast. Radiation optimization: All CT scans at this facility use at least one of these dose optimization techniques: automated exposure control; mA and/or kV adjustment per patient size (includes targeted exams where dose is matched to clinical indication); or iterative reconstruction. Contrast material: OMNI 300; Contrast volume: 95 ml; Contrast route: INTRAVENOUS (IV); COMPARISON: CT abdomen pelvis wo con [id number] 08/18/2020 1:56 PM RADIATION DOSE METRICS: Total DLP (mGy-cm): 959.13 FINDINGS: Liver: Negative for liver mass. Calcified granulomas. Gallbladder and bile ducts: Cholecystectomy. Nonobstructed biliary system. Pancreas: Normal. No ductal dilation. Spleen: No splenomegaly. Small calcified granulomas. Adrenal glands: Normal. No mass. Kidneys and ureters: Mild atrophy of the renal parenchyma. Negative for hydronephrosis. Symmetric renal enhancement. No stones. Negative for perinephric inflammation. Stomach and bowel: Surgical changes of the rectosigmoid colon with unremarkable appearance. Scattered diverticulosis coli. No focal bowel wall masses. No focal bowel wall inflammation. Negative for obstruction. Negative perforation. Appendix: Appendix not seen. Intraperitoneal space: Unremarkable. No free air. No significant fluid collection. Vasculature: Diffuse atherosclerosis. No vascular occlusion. Negative for aneurysm. Lymph nodes: Unremarkable. No enlarged lymph nodes. Urinary bladder: Unremarkable as visualized. Reproductive: Hysterectomy. Bones/joints: Grade 1 L4-L5 spondylolisthesis secondary to facet joint arthropathy. No acute fractures. No vertebral body height loss. No suspicious bone lesion. Soft tissues: Unremarkable. CT/CT abdomen pelvis w con* [id number] IMPRESSION: 1. Negative for acute pathology in the abdomen or pelvis. 2. No significant changes from comparison imaging. Radiation Dose CTDIVOL = (mGy): DLP = 959.13 (mGy-cm)
[2020-09-12 22:50] VITALS: BP 150/61; RESP 20; TEMP 37.6; O2SAT 97
[2020-09-12] MEDS: iohexol 300 mg/mL 100 mL Btl IV (22:52)
[2020-09-13 00:41] VITALS: BP 138/75; PULSE 76; O2SAT 98
== END 2020-09-13 00:20 | disposition home or self-care (01) ==
PROVIDERS: Emergency Provider Nurse Practitioner Family; PCP Internal Medicine
DX: R50.9 Fever, unspecified (principal); R82.998 Other abnormal findings in urine; Z79.82 Long term (current) use of aspirin
CPT/HCPCS: 71045; 74177; 80053; 81001; 83690; 85025; 87040; 87081; 87205; 87804; 87880; 99283; Q9967

== ENCOUNTER 2020-10-14 13:46 | Outpatient (CLI) | payer MEDICARE, SELFPAY ==
[2020-10-14 16:52] LABS: Basophils % 0.2 %; Hematocrit 36.8 % (37.0-47.0); Hemoglobin 11.5 g/dL (11.5-15.3); Lymphocytes % 9.1 %; Mean Corpuscular HGB Conc 31.3 g/dL (30.0-36.0); Mean Corpuscular Hemoglobin 29.8 pg (28.0-34.0); Mean Corpuscular Volume 95.3 fL (81-99); Mean Platelet Volume 11.8 fL (7.4-10.4); Monocytes # 0.3 10^3/uL (0.2-0.9); Monocytes % 2.7 %; Neutrophils # 9.32 10^3/uL (1.8-7.7); Neutrophils % 87.5 %; Nucleated Red Blood Cells % 0 %; Platelet Count 248 10^3/cmm (130-400); Red Blood Count 3.86 10^6/uL (4.1-5.3); Red Cell Distribution Width 13.4 % (12.1-15.1); Reticulocyte % 2.4 % (0.5-2.0); White Blood Count 10.7 10^3/uL (4.0-10.0)
[2020-10-14 17:01] LABS: Alanine Aminotransferase 20 U/L (0-33); Albumin Level 3.5 g/dL (3.5-5.2); Alkaline Phosphatase 69 IU/L (35-105); Aspartate Amino Transferase 22 U/L (0-32); Blood Urea Nitrogen 26 mg/dL (8-23); C Reactive Protein 0.3 mg/L (0.0-4.9); Calcium 9.2 mg/dL (8.5-10.5); Carbon Dioxide 26 mmol/L (22-29); Chloride 105 mmol/L (98-107); Ferritin 89 ng/mL (15-150); Globulin 2.4 g/dL (1.3-4.6); Glucose 132 mg/dL (65-115); Homocysteine 23.53; Iron 43 ug/dL (37-145); Lactate Dehydrogenase 188 U/L (135-214); Osmolality Calculated 297 mOsm/kg (285-295); Percent Saturation 10.9 % (20-50); Sodium 140 mmol/L (136-145); Total Bilirubin 0.2 mg/dL (0.15-1.2); Total Iron Binding Capacity 394 mcg/dl; Total Protein 5.9 g/dL (6.6-8.7); Unsaturated Iron Binding 351 ug/dL (112-347)
[2020-10-14 17:21] LABS: Vitamin B12 > 2000 pg/mL (232-1245)
[2020-10-14 17:38] LABS: Erythrocyte Sedimentation Rate 13 mm/hr (0-15)
[2020-10-14 18:04] LABS: Folate Level > 20.0 ng/mL (4.8-37.3)
--- NOTE | 2020-10-14 19:11 | ONC CON_ITS ---
Dr. Bonner New Patient Note Patient: Elizabeth Sanders Unit #: [id number]: [id number] Dicatated By: Manjit Bonner M.D.Date of Visit: Oct 14, 2020 Onc MED New Patient/Consult Referring Physician: Dr. OSCAR SANCHEZ M.D. Chief Complaint: Anemia. History of Present Illness: This is a 75-year-old woman with a mild anemia. This patient moved to this area from [place] approximately 2 years ago. She has been seeing Dr. Sanchez for primary care. She gives a history of having been diagnosed with sarcoidosis somewhere around 50 years ago based on a biopsy which was done in the upper right chest area. She had treatment to [facility], apparently with good response to steroid therapy. Her other chronic medical illnesses include hypertension and hyperlipidemia. She gives a history of having had kidney failure, but not on dialysis . She has been seeing Dr. Berger for her nephrology follow-up. I do not have his records available. She had seen Dr. Sanchez with multiple complaints which have included postprandial abdominal pain/distention and diarrhea. She reported having significant weight loss after moving to [place], which has now reached 50 pounds. She underwent GI evaluation by Dr. Varghese, including EGD and colonoscopy in May. The EGD showed evidence of gastritis. There were no significant abnormal findings on the colonoscopy. Abdominal ultrasound on 06/24/2020 showed suggestion of a 2 mm calculus in the distal common bile duct/head of pancreas. MRCP, though, showed no evidence of choledocholithiasis. The pancreas had a normal appearance. There were no other significant findings. CT abdomen/pelvis on 08/18/2020 showed moderate distention of small bowel loops in the upper and mid abdomen with air-fluid levels and persistent air within the colon. There was no visualized transition point. The findings were felt to be consistent with adynamic ileus versus developing partial small bowel obstruction. There was evidence for delayed gastric emptying with the majority of the oral contrast in the stomach and proximal duodenum. A few prominent lymph nodes were noted along the mesenteric root, felt to be likely reactive. A nuclear medicine gastric emptying study showed moderate gastroparesis with only 30% excretion of food products from the stomach at [address] abdomen and pelvis on 09/12/2020 showed no evidence for acute pathology. The liver and pancreas appeared normal. There was no evidence of splenomegaly. There is no evidence of bowel obstruction. There were no enlarged lymph nodes noted. Laboratory studies done through Dr. Howard's office on 07/28/2020 included CBC showing hemoglobin 10.6 g with hematocrit 31.8%. The red cell indices were normal. The white blood cell count was 7400 and the platelet count was 298,000. The differential showed 65% neutrophils, 20% lymphocytes, 6% monocytes, and 9% eosinophils. Renal function was just borderline low with BUN 32 and creatinine 1.06 mg/dL. The bilirubin and liver enzymes were normal. Total protein was low at 5.7 g/dL with albumin 3.3 g/dL and calculated serum globulin 2.4 g/dL. Calcium was slightly high relative to the albumin at 10.0 mg/dL. TSH was normal at 1.670 ???IU/mL. Her B12 level was greater than 2000 pg/mL with folate level normal at 13.0 ng/mL. An intrinsic factor antibody was elevated at 3.7 AU/mL. Her serum iron was normal at 66 mcg/dL. Her repeat CBC on 09/01/2020 showed similar findings with hemoglobin 9.9 g and hematocrit 29%, white blood cell count 5700, and platelet count 286,000. The reported differential included 66% neutrophils, 23% lymphocytes, 8% monocytes, 2% eosinophils, and 1% basophils. Basic metabolic profile showed BUN 23 and creatinine 0.91 mg/dL. Calcium was normal at 9.4 mg/dL. She has been on both B12 and iron supplements orally, and she has been started on pantoprazole for the gastritis. She complains that her energy is not good, but she is able to do light work. ECOG score is 1. Her appetite has not been good, but lately she has been eating a little better. Her weight, as noted, is down 50 pounds over the past 2 years. Approximately a month ago she had an episode of fever and shaking chills, and at that time she was seen in the emergency room and treated for urinary tract infection. For over a year she has been having drenching night sweats. She has chronic sinus symptoms, presumed allergy related. She has had a little bit of sore throat. She says she chokes on things easily. She has only a little bit of cough. Her breathing is okay with normal activity. She does not complain of chest pain. She has not been having nausea. She sometimes has acid reflux, that has been managed adequately with Tums. She continues to have postprandial abdominal discomfort and distention. She had been having diarrhea off and on, but mostly at night. Lately her bowels have been more regular and her stools have been formed. She has black stools with the iron supplement. She has not been aware of any blood in the stool. She has had bladder control problems for years. She has no significant joint or bone pain. She does not complain of headache. She says she has been a little more dizzy, but it is not constant. She has no numbness/paresthesia or other focal neurologic symptoms. Past Medical History: Her medical history includes asthma, chronic kidney disease, history of sarcoidosis, hyperlipidemia, hypertension, pancreatic atrophy, and vitamin B12 deficiency. Past Surgical History: Her surgical/procedural history includes biopsy procedure for sarcoidosis, cholecystectomy, hysterectomy/bilateral salpingectomy-oophorectomy, EGD and colonoscopy in 2020, and partial colon resection (rectosigmoid colon) in 2016. Medications: amLODIPine Besylate 1 (2.5 mg) Tablet Oral daily, Aspirin Tablet, chewable Oral, Cholecalciferol 1 (125 mcg ) Capsule Oral daily, Fenofibrate 1 (160 mg) Tablet Oral daily, Lysine 1 (500 mg) Capsule Oral daily, Magnesium 1 (200 mg) Tablet, chewable Oral daily, Pantoprazole Sodium 1 (40 mg) Tablet, enteric coated Oral daily, Polyvitamin/Iron 1 Tablet (of 150 mg) Solution Oral daily, predniSONE 1 (10 mg) Tablet Oral daily, Vitamin B-12 1 (1000 mcg) Tablet Dispersable Oral daily, Zenpep 1 (5000-48210 Units) Capsule Delayed Release Particles Oral t.i.d. Allergies: Atenolol, Morphine Sulfate, and Penicillins. Social History: Ms. Sanders is . She is a non-smoker. She does not drink alcohol. Family History: Father had diabetes and with heart disease at age 79. Mother had heart disease and renal failure. She at age 79. She has a brother and 3 sisters, all still living. Her older sister has heart disease and some type of cancer. Her younger sister has diabetes and she has been treated for [employer] JIG cancer. Review Of Symptoms: Constitutional - Her energy is not good, but she is able to do light work at home. Appetite also is not good, though lately she has been eating better. She has had a weight loss of 50 pounds since she moved here from [place] 2 years ago. Approximately a month ago she was seen in the emergency room with a fever and shaking chill. She was treated for urinary tract infection. She has been having drenching night sweats for over a year. ECOG score is 1, Eyes - No change in vision, ENMT - No hearing loss or tinnitus. She has chronic allergy related sinus symptoms. No mouth sores. No sore throat or difficulty swallowing, Hematologic/Lymphatic - She has abnormal bruising, Respiratory - Her breathing is okay with normal activity. She has just a little bit of cough. No pleuritic pain or hemoptysis, Cardiovascular - No angina pain or palpitations. She has a heart murmur, Gastrointestinal - No nausea or vomiting. She sometimes has acid reflux, adequately managed with Tums. She has been having postprandial abdominal discomfort and distention. She had been having diarrhea off and on, mostly at night. Recently her bowel function has been more regular and with formed stool. She has not been aware of any blood in the stool, but her stools are dark due to her iron supplement, Genitourinary (F) - No dysuria or hematuria. She has urinary frequency and she has had a bladder control problem for years, Musculoskeletal - No significant joint or bone pain, Neurologic - No headache. Lately she has had a little more dizziness, but not constant. No numbness or tingling. No other focal neurologic symptoms, Psychiatric - She has some anxiety, but no depression. She sometimes has difficulty sleeping. Vital Signs: Performed on Oct 14, 2020 16:10: 6, 5, 23.31, 1.62 sq.m, 63 in, 98 %, 71 /min, 18 /min, 173/72 mm(hg) (HIGH), 97.4 F (LOW), and 131.6 lbs (HIGH). Physical Examination: Constitutional - She does not appear acutely ill, but she does have visible evidence of weight loss, Eyes - Sclerae nonicteric. Conjunctivae clear, ENMT - No lesions noted in the oral cavity, Neck - No mass or thyromegaly, Hematologic/Lymphatic - No cervical, clavicular, or axillary adenopathy, Respiratory - Lungs are clear with good air movement bilaterally, Cardiovascular - Heart rhythm is regular with frequent premature beats. There is a II/ systolic murmur. There is no gallop or rub noted, Abdomen - Soft with some evidence of wasting. There is no abdominal tenderness. There is a ventral hernia. Liver and spleen are not enlarged. There is no abdominal mass or ascites noted and there is no inguinal adenopathy, Back/Spine - No spine or CVA tenderness noted, Extremities - Mild lower extremity edema. Pedal pulses are palpable bilaterally, Integumentary - There are scattered ecchymoses and purpuric lesions. These include ecchymotic lesions in the lower thigh area bilaterally which have very unusual appearance, as both contain multiple small areas which appear more darkly purpuric in an apparent follicular pattern. No suspicious skin lesions noted, Neurologic - No focal neurologic deficits noted. Problem List: 1. Mild anemia, normochromic/normocytic. 2. She has unexplained weight loss and drenching night sweats. 3. Gastroparesis and pancreatic atrophy. 4. She has a history of sarcoidosis, apparently responding to steroid therapy. 5. Hypertension. 6. Hyperlipidemia. 7. Chronic kidney disease. 8. History of asthma. 9. B12 deficiency. Problems Addressed with this Encounter and Plan: Patient with mild anemia. She had previously been found to have B12 deficiency, and she had an elevated intrinsic factor antibody level. The cause of the anemia, though, remains uncertain, as her B12 level was greater than 2000 on on oral B12 supplementation. Iron deficiency at this point has not been excluded. The most likely cause otherwise would be a chronic disease type anemia. She does have significant GI complaints associated with gastroparesis and pancreatic atrophy. She has a very significant unexplained weight loss and she also has drenching night sweats, which is worrisome for underlying malignancy. At this point I will obtain additional laboratory studies to include CBC, comprehensive metabolic profile, sed rate and CRP level, LDH, reticulocyte count, haptoglobin, serum iron studies and ferritin, B12 and folate levels, MMA and homocystine levels, serum protein electrophoresis and free light chain assay, and screen for PNH. I will have her bring in a 24-hour urine specimen for total protein excretion and for protein electrophoresis. I also will review the blood smear. She will have further evaluation as indicated, but I anticipate that she will be undergoing bone marrow aspiration/biopsy. It is doubtful that we would be able to get approval for PET/CT without first having tissue diagnosis of malignancy. Signed By: Manjit Bonner M.D. <<Signature on File>>
== END 2020-10-14 13:47 | disposition home or self-care (01) ==
LOC: ONCMED 13:52
PROVIDERS: PCP Internal Medicine; Visit Provider Internal Medicine Medical Oncology
DX: D50.9 Iron deficiency anemia, unspecified (principal); D51.9 Vitamin B12 deficiency anemia, unspecified; R63.4 Abnormal weight loss; R61 Generalized hyperhidrosis; D86.9 Sarcoidosis, unspecified; I10 Essential (primary) hypertension; E78.5 Hyperlipidemia, unspecified; N18.9 Chronic kidney disease, unspecified; J45.909 Unspecified asthma, uncomplicated; Z79.52 Long term (current) use of systemic steroids; Z79.899 Other long term (current) drug therapy
CPT/HCPCS: 36415; 80053; 82607; 82728; 82746; 83010; 83090; 83540; 83550; 83615; 85025; 85045; 85651; 86140; 86356; 99205

== ENCOUNTER 2020-10-18 10:41 | Outpatient (CLI) | payer MEDICARE, SELFPAY ==
[2020-10-18 12:33] LABS: Total Volume, Urine 650 mL; Urine Total Protein 4.7 mg/24HR (0-150); Urine Total Protein 24 Hour 30.6 mg/dL (0-150)
[2020-10-19 12:23] LABS: CREATININE, 24 HOUR URINE 0.34 g/24 h (0.50-2.15); PROTEIN, TOTAL, 24 HR UR 59 mg/24 h (<150); Protein/Creatinine Ratio 170 mg/g creat (< OR = 114)
[2020-10-20 09:38] LABS: ALBUMIN 100 %; ALPHA-1-GLOBULINS 0 %; ALPHA-2-GLOBULINS 0 %; BETA GLOBULINS 0 %; GAMMA GLOBULINS 0 %
== END 2020-10-18 10:42 | disposition home or self-care (01) ==
PROVIDERS: PCP Internal Medicine; Visit Provider Internal Medicine Medical Oncology
DX: D64.9 Anemia, unspecified (principal); D51.9 Vitamin B12 deficiency anemia, unspecified; R79.89 Other specified abnormal findings of blood chemistry; Z79.899 Other long term (current) drug therapy
CPT/HCPCS: 84156; 84166

== ENCOUNTER 2020-11-04 09:13 | Outpatient (CLI) | payer MEDICARE, SELFPAY ==
[2020-11-04] MEDS: ferric carboxy (IVPB) 750 MG in sodium chloride 0.9% (100 ml) 100 ML 460 MG IV (15:10)
[2020-11-06 07:01] LABS: PROTEIN, TOTAL 5.4 g/dL (6.1-8.1)
[2020-11-08 11:27] LABS: ALPHA 1 GLOBULIN 0.3 g/dL (0.2-0.3); ALPHA 2 GLOBULIN 0.5 g/dL (0.5-0.9); BETA 1 GLOBULIN 0.5 g/dL (0.4-0.6); BETA 2 GLOBULIN 0.3 g/dL (0.2-0.5); GAMMA GLOBULIN 0.8 g/dL (0.8-1.7)
[2020-11-08 11:32] LABS: KAPPA LIGHT CHAIN, FREE, SERUM 51.1 mg/L (3.3-19.4); KAPPA/LAMBDA LIGHT CHAINS FREE 1.86 (0.26-1.65); LAMBDA LIGHT CHAIN, FREE, SERU 27.4 mg/L (5.7-26.3)
[2020-11-09 20:38] LABS: Methylmalonic Acid 425 nmol/L (87-318)
== END 2020-11-04 09:14 | disposition home or self-care (01) ==
PROVIDERS: PCP Internal Medicine; Visit Provider Internal Medicine Medical Oncology
DX: D50.9 Iron deficiency anemia, unspecified (principal)
CPT/HCPCS: 83883; 83921; 84155; 84165; 96365; J1439

== ENCOUNTER 2020-11-11 06:36 | Outpatient (CLI) | payer MEDICARE, SELFPAY ==
[2020-11-11] MEDS: ferric carboxy (IVPB) 750 MG in sodium chloride 0.9% (100 ml) 100 ML 460 MG IV (13:55)
== END 2020-11-11 06:37 | disposition home or self-care (01) ==
LOC: ONCMED 06:38
PROVIDERS: PCP Internal Medicine; Visit Provider Internal Medicine Medical Oncology
DX: D50.9 Iron deficiency anemia, unspecified (principal); Z79.899 Other long term (current) drug therapy
CPT/HCPCS: 96365; J1439

== ENCOUNTER 2020-12-21 13:39 | Outpatient (CLI) | payer MEDICARE, SELFPAY ==
[2020-12-21 14:23] LABS: Basophils % 0.5 %; Eosinophils # 0.1 10^3/uL (0.0-0.8); Eosinophils % 1.7 %; Hematocrit 37.3 % (37.0-47.0); Hemoglobin 11.9 g/dL (11.5-15.3); Lymphocytes # 1.5 10^3/uL (0.8-4.8); Lymphocytes % 22.2 %; Mean Corpuscular HGB Conc 31.9 g/dL (30.0-36.0); Mean Corpuscular Hemoglobin 31.2 pg (28.0-34.0); Mean Corpuscular Volume 97.6 fl (81-99); Mean Platelet Volume 11.6 fL (7.4-10.4); Monocytes # 0.5 10^3/uL (0.2-0.9); Monocytes % 7.4 %; Neutrophils % 67.7 %; Nucleated Red Blood Cells % 0 %; Platelet Count 235 10^3/cmm (130-400); Red Blood Count 3.82 10^6/uL (4.1-5.3); Red Cell Distribution Width 14.3 % (12.1-15.1); White Blood Count 6.6 10^3/uL (4.0-10.0)
[2020-12-21 14:44] LABS: Iron 135 ug/dL (37-145); Percent Saturation 58.1 % (20-50); Total Iron Binding Capacity 232 mcg/dl; Unsaturated Iron Binding 97 ug/dL (112-347)
[2020-12-21 15:12] LABS: Ferritin 1256 ng/mL (15-150)
--- NOTE | 2020-12-21 18:51 | ONC FU_ITS ---
Dr. Bonner Patient Follow-Up Note Patient: Elizabeth Sanders Unit #: [id number]: [id number] Dicatated By: Manjit Bonner M.D.Date of Visit:Dec 21, 2020 Onc Med Follow-up/Prog Note Chief Complaint: Anemia. History of Present Illness: This is a 75-year-old woman with a mild anemia. This patient moved to this area from [place] approximately 2 years ago. She has been seeing Dr. Brown for primary care. She gives a history of having been diagnosed with sarcoidosis somewhere around 50 years ago based on a biopsy which was done in the upper right chest area. She had treatment to [facility], apparently with good response to steroid therapy. Her other chronic medical illnesses include hypertension and hyperlipidemia. She gave a history of having had kidney failure, but not on dialysis . She had seen Dr. Brown with multiple complaints which included postprandial abdominal pain/distention and diarrhea. She reported having significant weight loss after moving to [place], which had reached 50 pounds. She underwent GI evaluation by Dr. Varghese, including EGD and colonoscopy in May. The EGD showed evidence of gastritis. There were no significant abnormal findings on the colonoscopy. Abdominal ultrasound on 06/24/2020 showed suggestion of a 2 mm calculus in the distal common bile duct/head of pancreas. MRCP, though, showed no evidence of choledocholithiasis. The pancreas had a normal appearance. There were no other significant findings. CT abdomen/pelvis on 08/18/2020 showed moderate distention of small bowel loops in the upper and mid abdomen with air-fluid levels and persistent air within the colon. There was no visualized transition point. The findings were felt to be consistent with adynamic ileus versus developing partial small bowel obstruction. There was evidence for delayed gastric emptying with the majority of the oral contrast in the stomach and proximal duodenum. A few prominent lymph nodes were noted along the mesenteric root, felt to be likely reactive. A nuclear medicine gastric emptying study showed moderate gastroparesis with only 30% excretion of food products from the stomach at [address] abdomen and pelvis on 09/12/2020 showed no evidence for acute pathology. The liver and pancreas appeared normal. There was no evidence of splenomegaly. There was no evidence of bowel obstruction. There were no enlarged lymph nodes noted. Laboratory studies done through Dr. Brown's office on 07/28/2020 included CBC showing hemoglobin 10.6 g with hematocrit 31.8%. The red cell indices were normal. The white blood cell count was 7400 and the platelet count was 298,000. The differential showed 65% neutrophils, 20% lymphocytes, 6% monocytes, and 9% eosinophils. Renal function was just borderline low with BUN 32 and creatinine 1.06 mg/dL. The bilirubin and liver enzymes were normal. Total protein was low at 5.7 g/dL with albumin 3.3 g/dL and calculated serum globulin 2.4 g/dL. Calcium was slightly high relative to the albumin at 10.0 mg/dL. TSH was normal at 1.670 ???IU/mL. Her B12 level was greater than 2000 pg/mL with folate level normal at 13.0 ng/mL. An intrinsic factor antibody was elevated at 3.7 AU/mL. Her serum iron was normal at 66 mcg/dL. Her repeat CBC on 09/01/2020 showed similar findings with hemoglobin 9.9 g and hematocrit 29%, white blood cell count 5700, and platelet count 286,000. The reported differential included 66% neutrophils, 23% lymphocytes, 8% monocytes, 2% eosinophils, and 1% basophils. Basic metabolic profile showed BUN 23 and creatinine 0.91 mg/dL. Calcium was normal at 9.4 mg/dL. I had seen her initially on 10/14/2020. She had been on both B12 and iron supplements orally, and she had started pantoprazole for the gastritis. She was just mildly anemic with hemoglobin 11.5 g. Her white blood cell count was slightly elevated at 10,700 and her platelet count was normal at 248,000. Her sed rate was normal at 13 mm/h. Her renal function was reasonably good with BUN 26 and creatinine 0.8 mg/dL. Bilirubin and liver enzymes were normal. LDH was normal at 188 U/L. Her B12 level is greater than 2000 ng/mL with methylmalonic acid level slightly elevated at 425 nmol/L. Her serum iron studies showed low transferrin saturation at 10.9% with ferritin normal at 89 ng/mL. With those findings, she was given parenteral iron replacement with 2 infusions of Injectafer. She is seen now for a follow-up visit. In the interim, she had undergone evaluation at [facility]. I have not been able to get access to those records yet. However, according to Dr. 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 In addition, she was confirmed to have recurrence of C. difficile colitis, which had developed despite having previously been treated with metronidazole. She currently is back on the metronidazole, which she tolerates rather poorly. She had felt better following the parenteral iron replacement, but only for short time. She is now back to having no energy. She sometimes is able to do a little bit of light work at home, but in general her activity is very limited. Her ECOG score is 2. Her appetite is somewhat variable. She complains of having gas buildup and knots in her stomach if she eats too much. She has not had fever. She generally feels cold, though recently she has had occasional episodes of sweating. She always has sinus drainage. She has not had sore mouth or throat. She says her breathing is okay. She sometimes has cough. She does not complain of chest pain. She has nausea with the metronidazole. She has still having loose stools intermittently, and she also complains that her belly hurts. Bladder function remains adequate. She has started on a diuretic for swelling in her ankles. Last week she developed fairly acute onset of neck pain radiating into her left arm. She went to the chiropractor, and the neck pain is better. She still has some pain in her left arm and hand. She does not complain of headache. She sometimes has dizziness. She has no numbness/paresthesia or other focal neurologic symptoms. Medications: amLODIPine Besylate 1 (2.5 mg) Tablet Oral daily, Aspirin Tablet, chewable Oral, Cholecalciferol 1 (125 mcg ) Capsule Oral daily, Fenofibrate 1 (160 mg) Tablet Oral daily, Flagyl Tablet Oral t.i.d., Lysine 1 (500 mg) Capsule Oral daily, Magnesium 1 (200 mg) Tablet, chewable Oral daily, Pantoprazole Sodium 1 (40 mg) Tablet, enteric coated Oral daily, Polyvitamin/Iron 1 Tablet (of 150 mg) Solution Oral daily, predniSONE 1 (10 mg) Tablet Oral daily, Vitamin B-12 1 (1000 mcg) Tablet Dispersable Oral daily, Zenpep 1 (5000-87380 Units) Capsule Delayed Release Particles Oral t.i.d. Allergies: Atenolol, Morphine Sulfate, and Penicillins. Vital Signs: Performed on Dec 21, 2020 15:26 Height - 63.00 in Weight - 127.6 lbs (LOW) BSA - 1.60 sq.m BMI - 22.60 Temperature - 97.7 F (LOW) Pulse - 80 /min Respiration - 18 /min BP - 146/70 mm(hg) (HIGH) O2 Sat - 96 % Pain - 0 Fatigue - 10 Physical Examination: Constitutional - She appears somewhat weak generally, Eyes - Sclerae nonicteric. Conjunctivae clear, ENMT - No lesions noted in the oral cavity, Hematologic/Lymphatic - No cervical, clavicular, or axillary adenopathy, Respiratory - Lungs are clear with good air movement bilaterally, Cardiovascular - Heart rhythm is regular. There is a II/ systolic murmur. There is no gallop or rub noted, Abdomen - Mildly distended and tympanic. Liver and spleen are not enlarged. There is no abdominal mass or ascites noted and there is no inguinal adenopathy, Extremities - Mild lower extremity edema, Integumentary - There is a recent biopsy site in the left gnosticism area, Neurologic - No focal neurologic deficits noted. Lab/Imaging: Test performed on Dec 21, 2020 14:02 Ferritin 1256 ng/mL Iron 135 mcg/dL Iron Binding Capacity (TIBC) 232 mcg/dl % Iron Saturation 58.1 % UIBC 97 mcg/dL WBC 6.6 10 3/uL RBC 3.82 10 6/uL HGB 11.9 g/dL HCT 37.3 % MCV 97.6 fl MCH 31.2 pg MCHC 31.9 g/dL RDW 14.3 % Platelet Count 235 10 3/cmm MPV 11.6 fL Neutrophils 4.50 10 3/uL Lymphocytes 1.5 10 3/uL Monocytes 0.5 10 3/uL Eosinophils 0.1 10 3/uL Basophils 0.0 10 3/uL Neutrophil % 67.7 % Lymphocyte % 22.2 % Monocyte % 7.4 % Eosinophil % 1.7 % Basophils % 0.5 % NRBC % 0 % Problem List: 1. Mild anemia, normochromic/normocytic. 2. She has unexplained weight loss and drenching night sweats. 3. Gastroparesis and pancreatic atrophy. 4. She has a history of sarcoidosis, apparently responding to steroid therapy. 5. Hypertension. 6. Hyperlipidemia. 7. Chronic kidney disease. 8. History of asthma. 9. B12 deficiency. Problems Addressed with this Encounter and Plan: 1. Patient with mild anemia. She had previously been found to have B12 deficiency, and she had an elevated intrinsic factor antibody level. On her evaluation in October 2020 she had evidence of iron deficiency. Her B12 level was greater than 2000 pg/mL, but her methylmalonic acid level was mildly elevated. She was given parenteral iron replacement with Injectafer, as she was not responding to oral iron. She had only transient symptomatic improvement. 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 The plan is to complete the IV copper infusions next week, but that will be subject to verification of insurance coverage, and we also will need to verify the records from [facility]. 2. She has recurrent C. difficile colitis. She is on treatment with metronidazole, which she tolerates poorly. She will now change treatment to oral vancomycin 125 mg 4 times daily, which we have been able to obtain through the hospital outpatient pharmacy. She will continue at that dosage for a minimum of 14 days and potentially up to 28 days, depending on response. Signed By: Manjit Bonner M.D. <<Signature on File>>
== END 2020-12-21 13:40 | disposition home or self-care (01) ==
PROVIDERS: PCP Internal Medicine; Visit Provider Internal Medicine Medical Oncology
DX: D64.9 Anemia, unspecified (principal); E53.8 Deficiency of other specified B group vitamins; E61.0 Copper deficiency; B96.89 Other specified bacterial agents as the cause of diseases classified elsewhere; I12.9 Hypertensive chronic kidney disease with stage 1 through stage 4 chronic kidney disease, or unspecified chronic kidney disease; N18.9 Chronic kidney disease, unspecified; E78.5 Hyperlipidemia, unspecified; Z79.899 Other long term (current) drug therapy; Z79.2 Long term (current) use of antibiotics
CPT/HCPCS: 36415; 82728; 83540; 83550; 85025; 99215

== ENCOUNTER 2020-12-27 06:01 | Outpatient (CLI) | payer MEDICARE, SELFPAY ==
[2020-12-27] MEDS: SODIUM CHLORIDE 0.9% IV (14:55)
[2020-12-27] MEDS: CUPRIC CHLORIDE IV (14:55)
== END 2020-12-27 06:02 | disposition home or self-care (01) ==
LOC: ONCMED 06:01
PROVIDERS: PCP Internal Medicine; Visit Provider Internal Medicine Medical Oncology
DX: D64.9 Anemia, unspecified (principal); Z79.899 Other long term (current) drug therapy; R63.4 Abnormal weight loss; R61 Generalized hyperhidrosis
CPT/HCPCS: 96365; 96366; J3490; J7050

== ENCOUNTER 2020-12-28 06:36 | Outpatient (CLI) | payer MEDICARE, SELFPAY ==
[2020-12-28] MEDS: SODIUM CHLORIDE 0.9% IV (08:35)
[2020-12-28] MEDS: CUPRIC CHLORIDE IV (08:35)
== END 2020-12-28 06:37 | disposition home or self-care (01) ==
LOC: ONCMED 06:36
PROVIDERS: PCP Internal Medicine; Visit Provider Internal Medicine Medical Oncology
DX: D64.9 Anemia, unspecified (principal); R63.4 Abnormal weight loss; R61 Generalized hyperhidrosis; Z79.899 Other long term (current) drug therapy
CPT/HCPCS: 96365; 96366; J3490; J7050

== ENCOUNTER 2020-12-31 06:32 | Outpatient (RCR) | payer MEDICARE, SELFPAY ==
[2020-12-29] MEDS: SODIUM CHLORIDE 0.9% IV (13:40)
[2020-12-29] MEDS: CUPRIC CHLORIDE IV (13:40)
[2020-12-30] MEDS: CUPRIC CHLORIDE IV (13:55)
[2020-12-30] MEDS: SODIUM CHLORIDE 0.9% IV (13:55)
[2020-12-31] MEDS: CUPRIC CHLORIDE IV (08:50)
[2020-12-31] MEDS: SODIUM CHLORIDE 0.9% IV (08:50)
== END 2021-01-06 23:59 | disposition home or self-care (01) ==
LOC: ONCMED 06:32
PROVIDERS: PCP Internal Medicine; Visit Provider Internal Medicine Medical Oncology
DX: E61.0 Copper deficiency (principal); D50.9 Iron deficiency anemia, unspecified; Z86.19 Personal history of other infectious and parasitic diseases; Z79.899 Other long term (current) drug therapy
CPT/HCPCS: 96365; 96366; J3490; J7050

== ENCOUNTER 2021-01-11 06:00 | Outpatient (RCR) | payer MEDICARE, SELFPAY | END 2021-01-14 08:00 | disposition home or self-care (01) | LOC: ONCMED 06:00 | PROVIDERS: PCP Internal Medicine; Visit Provider Internal Medicine Medical Oncology | DX: A04.71 Enterocolitis due to Clostridium difficile, recurrent (principal) | CPT/HCPCS: 87493 ==

== ENCOUNTER 2021-01-14 08:24 | Outpatient (CLI) | payer MEDICARE, SELFPAY ==
--- NOTE | 2021-01-14 08:36 | FL_ITS ---
WS: [id number] ESOPHAGRAM WITH FLUOROSCOPY HISTORY: DYSPHAGIA, UNSPECIFIED, ABDOMINAL DISTENSION COMPARISON: Prior CT 11/20/2016. FLUOROSCOPY TIME: 3.5 minutes. Esophagus and swallowing function: Patient swallowed the barium mixtures without difficulty. There ar e 2 small outpouchings noted from the mid esophagus. These outpouchings distended with the barium con trast and there is no residual filling of these outpouchings medially after completing the swallowing mechanism. These measure less than a centimeter in length and are probably traction diverticula. The se are both within the midesophagus. No hiatal hernia. No reflux was demonstrated on this examination. Tracheal calcifications are present. FL/FL barium swallow [id number] IMPRESSION: 1. Central esophageal traction diverticulum x2. These are often acquired due t o calcified lymph nodes in the mediastinum from prior granulomatous disease. Ramírez fernández does have numerous calcified lymph nodes in the mediastinum as seen on a prior CT from 2017. 2. No hiatal hernia or reflux.
== END 2021-01-14 08:25 | disposition home or self-care (01) ==
PROVIDERS: PCP Internal Medicine; Visit Provider Nurse Practitioner Family
DX: R14.0 Abdominal distension (gaseous) (principal); R19.7 Diarrhea, unspecified; K30 Functional dyspepsia; R13.10 Dysphagia, unspecified
CPT/HCPCS: 74220

== ENCOUNTER 2021-01-16 00:52 | Emergency (ER) | payer MEDICARE, SELFPAY ==
[2021-01-16 00:59] VITALS: BP 173/85; PULSE 95; RESP 18; TEMP 36; O2SAT 97; BMI 21.6
--- NOTE | 2021-01-16 01:14 | XRR_ITS ---
PROCEDURE INFORMATION: Exam: XR Abdomen Exam date and time: 01/16/2021 1:14 AM Age: 76 years old Clinical indication: Abdominal pain; Generalized; Prior surgery; Surgery date: 6+ months; Patient HX: Recent barium study; Additional info: Abd pain TECHNIQUE: Imaging protocol: XR of the abdomen. Views: Frontal supine view of the abdomen. 1 View. COMPARISON: CT abdomen pelvis w con* [id number] 09/12/2020 10:49 PM FINDINGS: Gastrointestinal tract: Interval appearance of extensive barium in the small bowel and colon. No apparent barium in the stomach. No bowel dilatation. Organs: Cholecystectomy surgical clips still present in the right upper abdomen. Bones/joints: No visible acute bony disease. XR/XR KUB portable [id number] IMPRESSION: No acute findings. Radiation Dose CTDIVOL = (mGy): DLP = (mGy-cm)
[2021-01-16 01:27] LABS: Basophils % 0.3 %; Eosinophils # 0.1 10^3/uL (0.0-0.8); Eosinophils % 0.6 %; Hematocrit 41.3 % (37.0-47.0); Hemoglobin 13.1 g/dL (11.5-15.3); Lymphocytes # 1.3 10^3/uL (0.8-4.8); Lymphocytes % 12.3 %; Mean Corpuscular HGB Conc 31.7 g/dL (30.0-36.0); Mean Corpuscular Hemoglobin 30.8 pg (28.0-34.0); Mean Corpuscular Volume 96.9 fl (81-99); Mean Platelet Volume 11.4 fL (7.4-10.4); Monocytes # 0.5 10^3/uL (0.2-0.9); Monocytes % 4.2 %; Neutrophils # 8.97 10^3/uL (1.8-7.7); Neutrophils % 82.1 %; Nucleated Red Blood Cells % 0 %; Platelet Count 230 10^3/cmm (130-400); Red Blood Count 4.26 10^6/uL (4.1-5.3); Red Cell Distribution Width 12.5 % (12.1-15.1); White Blood Count 10.9 10^3/uL (4.0-10.0)
--- NOTE | 2021-01-16 01:42 | ED_ITS ---
HPI - Abdominal Pain General: Chief Complaint: Abdominal Pain Stated Complaint: n/v, abdomen pain Time Seen by Provider: 01/16/21 01:08 History of Present Illness: HPI narrative: 76-year-old lady with a history of abdominal pain for over a year. She reports a history of intermittent abdominal pain that has had a thorough work-up over the last year. She has been seen at the [facility] prior and also at [facility] this past year. On Sunday, 2 days ago, she had a barium swallow study for her esophagus. She has underwent EGD in the last 6 months or so showing gastritis colonoscopy was not remarkable evidently. She has been diagnosed with gastric emptying disorder, as well as C. difficile colitis, for which she is still on oral vancomycin therapy. She has had diarrhea since she has been diagnosed with the C. difficile colitis. Tonight she reports vomiting several times starting around 11 PM. She still having nausea with increased belly pain. She denies any fever no blood per MD elicited complaint: abdominal pain Pertinent past history: other Onset (ago): hour(s) Pain Consistency: constant Location: Diffuse Severity: moderate Quality: cramping Migration to: no migration Exacerbating factors: eating Relieving factors: nothing Associated Symptoms: Reports bloating, GI cramping, diarrhea, loose stools, nausea, poor appetite and vomiting; Denies coffee ground emesis, fever(s) and hematochezia Review of Systems Const: Denies: fever(s) Card: Denies: chest pain or palpitations Resp: Denies: dyspnea, productive cough or non-productive cough GI: Reports: nausea, vomiting, diarrhea, bloating and GI cramping; Denies: coffee ground emesis or hematochezia PFSH ED PFSH: Medical History Abnormal weight loss Bloating Hiatal hernia Surgical History History of laparoscopic cholecystectomy Family History Denies family history of Anesthesia complication Bleeding disorder Social History Smoking and tobacco status: never smoked Second hand smoke exposure: No Alcohol intake: never Adopted: No Caregiver/support person: Yes Lives independently: Yes Household members: spouse Housing: House Marital status: service: No Current occupational status: retired Current occupational exposures/hazards: No Pets and animals: No History of recent travel: No Sexually active: No Current gender identity: Female Tessa/Yazdanism: Jainism Physical Exam Const: COMMON NORMALS: no acute distress, patient oriented x3 and alert GENERAL APPEARANCE: cooperative HENMT: COMMON NORMALS: normocephalic HEAD & SCALP: normocephalic Eye: COMMON NORMALS: Equal, round and reactive pupils present PUPIL: Yes Equal, round and reactive pupils present Chest: COMMONS NORMALS: normal inspection of the chest Resp: COMMON NORMALS: normal respiratory effort, No use of accessory muscles and clear to auscultation bilaterally AUSCULTATION: clear to auscultation bilaterally Cardio: COMMON NORMALS: regular rate and regular rhythm RATE: regular rate RHYTHM: regular rhythm GI: COMMON NORMALS: Soft to palpation INSPECTION: Yes abdominal distension (With tympany) AUSCULTATION: Yes Hyperactive bowel sounds present PALPATION: Yes Soft to palpation and Yes Tenderness to palpation present (GI) (Diffusely) Neuro: COMMON NORMALS: patient oriented x3 SENSORIUM/ORIENTATION: Yes alert Course Vital Signs: Vital signs: Vital Signs Temperature 96.8 F L 01/16/21 00:59 Pulse Rate 95 01/16/21 00:59 Respiratory Rate 18 01/16/21 00:59 Blood Pressure 173/85 01/16/21 00:59 Pulse Oximetry 97 01/16/21 00:59 MDM - Abdominal Pain MDM Narrative: Medical decision making narrative: Patient much improved after GI cocktail, Reglan, and Zofran. No more vomiting. She is finishing a liter of fluid. White blood cell count is 10.9 with 80% neutrophils. Creatinine is 1.2 which is about baseline. Lipase is minimally elevated, from vomiting. KUB shows a nonobstructive pattern, although she has quite a bit of dye left from the barium swallow on Sunday. We will get her up and walker after her liter of fluids is done, and if she is still improved nausea owens, will allow home Lab Data: Labs: Lab Results 01/16/21 01/16/21 01/16/21 01:23 01:23 01:23 WBC 10.9 10^3/uL H 10 ^3/uL (4.0-10.0) RBC 4.26 10^6/uL 10^6 /uL (4.1-5.3) Hgb 13.1 g/dL g/dL (11.5-15.3) Hct 41.3 % % (37.0-47.0) MCV 96.9 fl fl (81-99) MCH 30.8 pg pg (28.0-34.0) MCHC 31.7 g/dL g/dL (30.0-36.0) RDW 12.5 % % (12.1-15.1) Plt Count 230 10^3/cmm 10^3 /cmm (130-400) MPV 11.4 fL H fL (7.4-10.4) Neut % (Auto) 82.1 % % Lymph % (Auto) 12.3 % % Roane % (Auto) 4.2 % % Eos % (Auto) 0.6 % % Baso % (Auto) 0.3 % % Neut # (Auto) 8.97 10^3/uL H 10 ^3/uL (1.8-7.7) Lymph # (Auto) 1.3 10^3/uL 10^3/ uL (0.8-4.8) Roane # (Auto) 0.5 10^3/uL 10^3/ uL (0.2-0.9) Eos # (Auto) 0.1 10^3/uL 10^3/ uL (0.0-0.8) Baso # (Auto) 0.0 10^3/uL 10^3/ uL (0.0-0.1) Nucleated RBC % (a uto) 0 % % Nucleated RBCs # 0.0 /100WBC /100W BC Sodium 138 mmol/L mmol/L (136-145) Potassium 4.0 mmol/L mmol/L (3.5-5.1) Chloride 103 mmol/L mmol/L (98-107) Carbon Dioxide 22 mmol/L mmol/L (22-29) Anion Gap 17.0 (5-19) BUN 29 mg/dL H mg/dL (8-23) Creatinine 1.2 mg/dL H mg/dL (0.5-0.9) GFR Calculation Not Reportable Glucose 118 mg/dL H mg/dL (65-115) Calculated Osmolal ity 293 mOsm/kg mOsm/ kg (285-295) Lactate 0.8 mmol/L mmol/L (0.5-2.2) Calcium 10.1 mg/dL mg/dL (8.5-10.5) Total Bilirubin 0.4 mg/dL mg/dL (0.15-1.2) AST 27 U/L U/L (0-32) ALT 15 U/L U/L (0-33) Alkaline Phosphata se 96 IU/L IU/L (35-105) C-Reactive Protein 0.7 mg/L mg/L (0.0-4.9) Total Protein 7.2 g/dL g/dL (6.6-8.7) Albumin 3.9 g/dL g/dL (3.5-5.2) Globulin 3.3 g/dL g/dL (1.3-4.6) Lipase 68 U/L H U/L (13-60) Urine Color Urine Appearance Urine pH Ur Specific Gravit y Urine Protein Urine Glucose (UA) Urine Ketones Urine Blood Urine Nitrate Urine Bilirubin Urine Urobilinogen Ur Leukocyte Savita ase 01/16/21 02:20 WBC RBC Hgb Hct MCV MCH MCHC RDW Plt Count MPV Neut % (Auto) Lymph % (Auto) Roane % (Auto) Eos % (Auto) Baso % (Auto) Neut # (Auto) Lymph # (Auto) Roane # (Auto) Eos # (Auto) Baso # (Auto) Nucleated RBC % (a uto) Nucleated RBCs # Sodium Potassium Chloride Carbon Dioxide Anion Gap BUN Creatinine GFR Calculation Glucose Calculated Osmolal ity Lactate Calcium Total Bilirubin AST ALT Alkaline Phosphata se C-Reactive Protein Total Protein Albumin Globulin Lipase Urine Color Yellow (Yellow) Urine Appearance Clear (CLEAR) Urine pH 5 (5-7) Ur Specific Gravit y 1.020 (1.005-1.030) Urine Protein Neg (Negative) Urine Glucose (UA) Norm (Normal) Urine Ketones Negative (Negative) Urine Blood Neg (Negative) Urine Nitrate Negative (Negative) Urine Bilirubin 1+ H (Negative) Urine Urobilinogen Norm mg/dL mg/dL (Negative) Ur Leukocyte Savita ase Negative (Negative) Discharge Plan Discharge Patient Disposition: Home Clinical Impression: Gastritis Qualifiers: Gastritis type: unspecified gastritis Chronicity: chronic Gastritis bleeding: without bleeding Qualified Code(s): K29.50 - Unspecified chronic gastritis without bleeding Condition: Stable Prescriptions: New metoclopramide HCl 10 mg tablet 10 mg PO Q6H PRN (Reason: nausea and vomiting) Qty: 14 RF: 0 No Action selenium 200 mcg capsule 200 mcg PO DAILY RF: 0 fenofibrate 150 mg capsule 150 mg PO DAILY RF: 0 furosemide [Lasix] 20 mg tablet 20 mg PO DAILY RF: 0 aspirin 81 mg tablet,delayed release (DR/EC) 81 mg PO DAILY RF: 0 Hold Instructions: Resume on 05/22/20. magnesium 250 mg tablet 250 mg PO DAILY RF: 0 fluticasone propionate [Flonase Allergy Relief] 50 mcg/actuation spray,suspension 2 spray INTRANASAL DAILY RF: 0 Protonix 40 mg tablet,delayed release (DR/EC) 40 mg PO DAILY 30 Days Qty: 30 RF: 2 amlodipine 2.5 mg tablet 2.5 mg PO DAILY Qty: 30 RF: 1 Poly-Iron 150 mg iron capsule 150 mg PO BID RF: 0 ciprofloxacin HCl 500 mg tablet 500 mg PO BID Qty: 14 RF: 0 Discharge Orders: Discharge ED (Routine); Ordered 01/16/21 Ordered By: Dimitrios Greene Referrals: Rima Brown MD [Primary Care Provider] - 1-3 days Discharge Diet: Advance as tolerated Discharge Activity: Increase activity as tolerated Patient Instructions: Gastritis (ED) Activity Restrictions/Additional Instructions: Continue your pantoprazole return for worsening pain, fever greater than 100, vomiting liquids or medications, blood in the stool, other concerning symptoms. Coding Level of Care Code ED Electronics Worker for Laurag Fwd Exam Detailed
[2021-01-16 01:43] LABS: Lactate (Lactic Acid level) 0.8 mmol/L (0.5-2.2)
[2021-01-16] MEDS: sodium chloride 0.9% 1,000 ML 999 ML IV (01:47)
[2021-01-16] MEDS: ondansetron 2 mg/ML SDV 2 mL 4 MG IVP (01:47)
[2021-01-16 01:48] LABS: Alanine Aminotransferase 15 U/L (0-33); Albumin Level 3.9 g/dL (3.5-5.2); Alkaline Phosphatase 96 IU/L (35-105); Aspartate Amino Transferase 27 U/L (0-32); Blood Urea Nitrogen 29 mg/dL (8-23); C Reactive Protein 0.7 mg/L (0.0-4.9); Calcium 10.1 mg/dL (8.5-10.5); Carbon Dioxide 22 mmol/L (22-29); Chloride 103 mmol/L (98-107); Globulin 3.3 g/dL (1.3-4.6); Glucose 118 mg/dL (65-115); Lipase 68 U/L (13-60); Osmolality Calculated 293 mOsm/kg (285-295); Sodium 138 mmol/L (136-145); Total Bilirubin 0.4 mg/dL (0.15-1.2); Total Protein 7.2 g/dL (6.6-8.7)
[2021-01-16] MEDS: lidocaine 2% viscous 15 ML, aluminum-mag hydrox-simethicon 30 ML, sucralfate oral liq 1 GM PO (01:49)
[2021-01-16] MEDS: metoclopramide 5 mg/mL SDV 2 mL 10 MG IVP (01:49)
[2021-01-16 02:30] LABS: Add Urine Microscopic? NO; Charge for UA Resulting for Rev
[2021-01-16 02:34] VITALS: BP 142/76; PULSE 78; RESP 16; O2SAT 97
[2021-01-16 03:06] LABS: Bilirubin Urine 1+ (Negative); Blood Urine Neg (Negative); Glucose Urine UA Norm (Normal); Ketones Urine Negative (Negative); Leukocyte Esterase Urine Negative (Negative); Nitrate Urine Negative (Negative); Protein Urine Neg (Negative); Urine Appearance Clear (CLEAR); Urine Color Yellow (Yellow); Urobilinogen Urine Norm (Negative); pH Urine 5 (5-7)
[2021-01-16 03:41] VITALS: BP 137/77; PULSE 74; RESP 16; O2SAT 97
== END 2021-01-16 03:42 | disposition home or self-care (01) ==
PROVIDERS: Emergency Provider Emergency Medicine; PCP Internal Medicine
DX: K29.50 Unspecified chronic gastritis without bleeding (principal); Z79.82 Long term (current) use of aspirin
CPT/HCPCS: 74018; 80053; 81003; 83605; 83690; 85025; 86140; 96361; 96374; 96375; 99284; J2405; J2765; J7030

== ENCOUNTER 2021-01-18 00:29 | Emergency (ER) | payer MEDICARE, SELFPAY ==
[2021-01-18 00:35] VITALS: BP 166/67; PULSE 93; RESP 17; TEMP 37.3; O2SAT 98; BMI 21.6
--- NOTE | 2021-01-18 00:54 | CTR_ITS ---
PROCEDURE INFORMATION: Exam: CT Abdomen And Pelvis With Contrast Exam date and time: 01/18/2021 12:54 AM Age: 76 years old Clinical indication: Abdominal pain; Generalized; Prior surgery; Surgery date: 6+ months; Surgery type: Gb; Additional info: Abd pain TECHNIQUE: Imaging protocol: Computed tomography of the abdomen and pelvis with contrast. Radiation optimization: All CT scans at this facility use at least one of these dose optimization techniques: automated exposure control; mA and/or kV adjustment per patient size (includes targeted exams where dose is matched to clinical indication); or iterative reconstruction. Contrast material: OMNI 300; Contrast volume: 95 ml; Contrast route: INTRAVENOUS (IV); COMPARISON: CT abdomen pelvis w con* [id number] 09/12/2020 10:49 PM RADIATION DOSE METRICS: Total DLP (mGy-cm): 1021.32 FINDINGS: Liver: Scattered liver granulomas. Gallbladder and bile ducts: Status post cholecystectomy with compensatory biliary ductal dilation. Pancreas: No ductal dilation. Spleen: There is scattered splenic granulomas. Adrenal glands: Normal. No mass. Kidneys and ureters: No hydronephrosis. Stomach and bowel: Barium limits evaluation due dense streak artifact. There dilated loops of small bowel. Several dilated loops in the pelvis are not well evaluated due to the significant streak artifact. However, there appears to be an area of mesenteric twisting in the left abdomen on axial images 46-48. There is barium noted within the more distal small bowel loops and the colon up to the level of the rectum. Differential includes ileus or partial bowel obstruction in the appropriate clinical context Appendix: The appendix not identified. Intraperitoneal space: No free air. Small amount of ascites noted in the right upper quadrant. Vasculature: No abdominal aortic aneurysm. Lymph nodes: No enlarged lymph nodes. Urinary bladder: Unremarkable as visualized. Reproductive: The uterus and adnexal structures are not well visualized due to dense streak artifact. Bones/joints: Unremarkable. No acute fracture. Soft tissues: Unremarkable. CT/CT abdomen pelvis w con* [id number] IMPRESSION: Barium limits evaluation due dense streak artifact. There dilated loops of small bowel. Several dilated loops in the pelvis are not well evaluated due to the significant streak artifact. However, there appears to be an area of mesenteric twisting in the left abdomen on axial images 46-48. There is barium noted within the more distal small bowel loops and the colon up to the level of the rectum. Differential includes ileus or partial bowel obstruction in the appropriate clinical context. No free air. Small amount of fluid noted in the right upper quadrant. Radiation Dose CTDIVOL = (mGy): DLP = 1021.32 (mGy-cm)
--- NOTE | 2021-01-18 01:07 | W.ED.ABDPA2 ---
Documented by User: ANNETTE Self 01/18/21 17:09 HPI - Abdominal Pain General: Chief Complaint: Abdominal Pain Stated Complaint: N\V Time Seen by Provider: 01/18/21 00:46 History of Present Illness: HPI narrative: Patient is a 76-year-old female comes to the ED with abdominal pain, nausea vomiting. Patient symptoms have been going on for the past year and a couple months ago she had an upper and lower GI scope performed. Upper GI scope showed gastritis. She also had a barium swallow study first esophagus done on Sunday approximately 3 days ago. She has been diagnosed with gastric emptying disorder as well as C. difficile colitis and she is currently on oral vancomycin therapy. Patient has been taking oral Vanco for the past month but due to her symptoms she has not been able to take the oral vancomycin for the past 4 days. Patient was seen here in the ED last night January 16 for same complaint. She was diagnosed with gastritis and discharged home. Today she had increased nausea and abdominal pain. Abdominal pain is located in the lower abdomen and she rates it currently an 8 out of 10. Eating makes her symptoms worse. She had an episode of emesis this evening as well after she ate. She states the nausea and abdominal pain is worse than yesterday. Associated Symptoms: Reports diarrhea, nausea and vomiting; Denies chills, constipation, dysuria, fever(s), hematochezia and hematuria Review of Systems Const: Denies: fever(s), chills or fatigue Eyes: Denies: change in vision or eye discomfort ENMT: Denies: throat pain, odynophagia, nasal discharge or nasal congestion Card: Denies: chest pain, palpitations, edema, swelling of feet/ankles, dyspnea on exertion or orthopnea Resp: Denies: dyspnea, productive cough or non-productive cough GI: Reports: abdominal pain, nausea, vomiting and diarrhea; Denies: constipation or hematochezia : Denies: flank pain, dysuria or hematuria Musc: Denies: neck pain, back pain or extremity swelling Skin/Breast: Denies: rash or new lesions Neuro: Denies: headache(s), numbness in extremities or weakness in extremities PFS ED PFSH: Medical History Abnormal weight loss Bloating Hiatal hernia Surgical History History of laparoscopic cholecystectomy Family History Denies family history of Anesthesia complication Bleeding disorder Social History Smoking and tobacco status: never smoked Second hand smoke exposure: No Alcohol intake: never Adopted: No Caregiver/support person: Yes Lives independently: Yes Household members: spouse Housing: House Marital status: service: No Current occupational status: retired Current occupational exposures/hazards: No Pets and animals: No History of recent travel: No Sexually active: No Current gender identity: Female Tessa/Temple: Mandaen Physical Exam Const: COMMON NORMALS: no acute distress, patient oriented x3 and alert GENERAL APPEARANCE: cooperative, comfortable and frail appearing HENMT: COMMON NORMALS: normocephalic HEAD & SCALP: normocephalic MOUTH: moist mucous membranes abnormal Details: parched THROAT: posterior oropharynx normal and uvula midline Eye: COMMON NORMALS: Equal, round and reactive pupils present PUPIL: Yes Equal, round and reactive pupils present Neck/C-Spine: COMMON NORMALS: supple GENERAL: Yes normal visual inspection Resp: COMMON NORMALS: normal respiratory effort, No retractions, No use of accessory muscles and clear to auscultation bilaterally AUSCULTATION: clear to auscultation bilaterally Cardio: COMMON NORMALS: regular rate, regular rhythm, S1 normal heart sound present, S2 normal heart sound present, No gallops present (Cardio), No clicks present (Cardio), No murmurs present (Cardio) and Peripheral pulses 2+ throughout RATE: regular rate RHYTHM: regular rhythm HEART SOUNDS: S1 normal heart sound present and S2 normal heart sound present PERIPHERAL PULSES: Peripheral pulses 2+ throughout GI: COMMON NORMALS: Normal to inspection, nondistended, normoactive bowel sounds present, Soft to palpation and no masses PALPATION: Yes Soft to palpation and Yes Tenderness to palpation present (GI) (Generalized bilateral lower abdominal pain) Details: LLQ and RLQ : COMMON NORMALS: Yes no CVA tenderness BLADDER/KIDNEY EXAM: Yes no CVA tenderness Back/Pelvis: COMMON NORMALS: no CVA tenderness Extremity: COMMON NORMALS: normal to inspection and no pedal edema Neuro: COMMON NORMALS: patient oriented x3 SENSORIUM/ORIENTATION: Yes alert GAIT: Yes Normal gait present Skin: GENERAL SKIN EXAM: dry skin Course Vital Signs: Vital signs: Vital Signs Temperature 99.2 F 01/18/21 04:18 Pulse Rate 93 01/18/21 00:35 Respiratory Rate 17 01/18/21 04:18 Blood Pressure 178/71 01/18/21 04:18 Pulse Oximetry 98 01/18/21 04:18 MDM - Abdominal Pain Lab Data: Attestation: I reviewed the patient's lab results. Labs: Lab Results 01/18/21 01/18/21 01/18/21 01:30 01:30 01:30 WBC 12.4 10^3/uL H 10 ^3/uL (4.0-10.0) RBC 4.13 10^6/uL 10^6 /uL (4.1-5.3) Hgb 13.0 g/dL g/dL (11.5-15.3) Hct 39.4 % % (37.0-47.0) MCV 95.4 fl fl (81-99) MCH 31.5 pg pg (28.0-34.0) MCHC 33.0 g/dL g/dL (30.0-36.0) RDW 12.4 % % (12.1-15.1) Plt Count 237 10^3/cmm 10^3 /cmm (130-400) MPV 11.7 fL H fL (7.4-10.4) Neut % (Auto) 87.4 % % Lymph % (Auto) 8.3 % % [place] % (Auto) 3.7 % % Eos % (Auto) 0.2 % % Baso % (Auto) 0.2 % % Neut # (Auto) 10.79 10^3/uL H 1 0^3/uL (1.8-7.7) Lymph # (Auto) 1.0 10^3/uL 10^3/ uL (0.8-4.8) [place] # (Auto) 0.5 10^3/uL 10^3/ uL (0.2-0.9) Eos # (Auto) 0.0 10^3/uL 10^3/ uL (0.0-0.8) Baso # (Auto) 0.0 10^3/uL 10^3/ uL (0.0-0.1) Nucleated RBC % (a uto) 0 % % Nucleated RBCs # 0.0 /100WBC /100W BC Sodium 137 mmol/L mmol/L (136-145) Potassium 4.3 mmol/L mmol/L (3.5-5.1) Chloride 103 mmol/L mmol/L (98-107) Carbon Dioxide 21 mmol/L L mmol/ L (22-29) Anion Gap 17.3 (5-19) BUN 30 mg/dL H mg/dL (8-23) Creatinine 0.9 mg/dL mg/dL (0.5-0.9) GFR Calculation Not Reportable Glucose 123 mg/dL H mg/dL (65-115) Calculated Osmolal ity 292 mOsm/kg mOsm/ kg (285-295) Calcium 10.9 mg/dL H mg/d L (8.5-10.5) Total Bilirubin 0.4 mg/dL mg/dL (0.15-1.2) AST 26 U/L U/L (0-32) ALT 15 U/L U/L (0-33) Alkaline Phosphata se 83 IU/L IU/L (35-105) Total Protein 7.4 g/dL g/dL (6.6-8.7) Albumin 3.9 g/dL g/dL (3.5-5.2) Globulin 3.5 g/dL g/dL (1.3-4.6) Lipase 75 U/L H U/L (13-60) H. pylori IgG Anti body Negative (Negative) Discharge Plan Discharge Patient Disposition: Home Clinical Impression: Abdominal pain Qualifiers: Abdominal location: generalized Qualified Code(s): R10.84 - Generalized abdominal pain Condition: Stable Prescriptions: New hydrocodone-acetaminophen 5-325 mg tablet 1 tab PO Q6H PRN (Reason: pain) Qty: 14 RF: 0 No Action selenium 200 mcg capsule 200 mcg PO DAILY RF: 0 fenofibrate 150 mg capsule 150 mg PO DAILY RF: 0 furosemide [Lasix] 20 mg tablet 20 mg PO DAILY RF: 0 aspirin 81 mg tablet,delayed release (DR/EC) 81 mg PO DAILY RF: 0 Hold Instructions: Resume on 05/22/20. magnesium 250 mg tablet 250 mg PO DAILY RF: 0 fluticasone propionate [Flonase Allergy Relief] 50 mcg/actuation spray,suspension 2 spray INTRANASAL DAILY RF: 0 Protonix 40 mg tablet,delayed release (DR/EC) 40 mg PO DAILY 30 Days Qty: 30 RF: 2 amlodipine 2.5 mg tablet 2.5 mg PO DAILY Qty: 30 RF: 1 Poly-Iron 150 mg iron capsule 150 mg PO BID RF: 0 ciprofloxacin HCl 500 mg tablet 500 mg PO BID Qty: 14 RF: 0 metoclopramide HCl 10 mg tablet 10 mg PO Q6H PRN (Reason: nausea and vomiting) Qty: 14 RF: 0 Discharge Orders: Discharge ED (Routine); Ordered 01/18/21 Ordered By: Lola Swanson Referrals: Rima Brown MD [Primary Care Provider] - Jesse Duckworth MD [Physician] - 1-3 days Discharge Diet: Advance as tolerated Discharge Activity: Resume usual activity Patient Instructions: Abdominal Pain (ED), Opioid Safety Coding Level of Care Code ED Aerobics Teacher for Chg Fwd Exam Comprehensive Documented by User: Lola Swanson MD 01/18/21 04:22 HPI - Abdominal Pain General: Chief Complaint: Abdominal Pain Stated Complaint: N\V Time Seen by Provider: 01/18/21 00:46 [facility] ED PFSH: Medical History Abnormal weight loss Bloating Hiatal hernia Surgical History History of laparoscopic cholecystectomy Family History Denies family history of Anesthesia complication Bleeding disorder Social History Smoking and tobacco status: never smoked Second hand smoke exposure: No Alcohol intake: never Adopted: No Caregiver/support person: Yes Lives independently: Yes Household members: spouse Housing: House Marital status: service: No Current occupational status: retired Current occupational exposures/hazards: No Pets and animals: No History of recent travel: No Sexually active: No Current gender identity: Female Tessa/Temple: Mandaen Course Vital Signs: Vital signs: Vital Signs Temperature 99.2 F 01/18/21 04:18 Pulse Rate 93 01/18/21 00:35 Respiratory Rate 17 01/18/21 04:18 Blood Pressure 178/71 01/18/21 04:18 Pulse Oximetry 98 01/18/21 04:18 MDM - Abdominal Pain MDM Narrative: Medical decision making narrative: Patient presents with abdominal pain it has been chronic in nature. Along 4-year and she had multiple follow-ups. CT scan here showed no definite abnormalities was limited due to recent barium study. She has good bowel sounds and had a bowel movement today no signs of bowel obstruction. We will get her follow-up with surgery. She is to return if worsening. Lab Data: Labs: Lab Results 01/18/21 01/18/21 01/18/21 01:30 01:30 01:30 WBC 12.4 10^3/uL H 10 ^3/uL (4.0-10.0) RBC 4.13 10^6/uL 10^6 /uL (4.1-5.3) Hgb 13.0 g/dL g/dL (11.5-15.3) Hct 39.4 % % (37.0-47.0) MCV 95.4 fl fl (81-99) MCH 31.5 pg pg (28.0-34.0) MCHC 33.0 g/dL g/dL (30.0-36.0) RDW 12.4 % % (12.1-15.1) Plt Count 237 10^3/cmm 10^3 /cmm (130-400) MPV 11.7 fL H fL (7.4-10.4) Neut % (Auto) 87.4 % % Lymph % (Auto) 8.3 % % [place] % (Auto) 3.7 % % Eos % (Auto) 0.2 % % Baso % (Auto) 0.2 % % Neut # (Auto) 10.79 10^3/uL H 1 0^3/uL (1.8-7.7) Lymph # (Auto) 1.0 10^3/uL 10^3/ uL (0.8-4.8) [place] # (Auto) 0.5 10^3/uL 10^3/ uL (0.2-0.9) Eos # (Auto) 0.0 10^3/uL 10^3/ uL (0.0-0.8) Baso # (Auto) 0.0 10^3/uL 10^3/ uL (0.0-0.1) Nucleated RBC % (a uto) 0 % % Nucleated RBCs # 0.0 /100WBC /100W BC Sodium 137 mmol/L mmol/L (136-145) Potassium 4.3 mmol/L mmol/L (3.5-5.1) Chloride 103 mmol/L mmol/L (98-107) Carbon Dioxide 21 mmol/L L mmol/ L (22-29) Anion Gap 17.3 (5-19) BUN 30 mg/dL H mg/dL (8-23) Creatinine 0.9 mg/dL mg/dL (0.5-0.9) GFR Calculation Not Reportable Glucose 123 mg/dL H mg/dL (65-115) Calculated Osmolal ity 292 mOsm/kg mOsm/ kg (285-295) Calcium 10.9 mg/dL H mg/d L (8.5-10.5) Total Bilirubin 0.4 mg/dL mg/dL (0.15-1.2) AST 26 U/L U/L (0-32) ALT 15 U/L U/L (0-33) Alkaline Phosphata se 83 IU/L IU/L (35-105) Total Protein 7.4 g/dL g/dL (6.6-8.7) Albumin 3.9 g/dL g/dL (3.5-5.2) Globulin 3.5 g/dL g/dL (1.3-4.6) Lipase 75 U/L H U/L (13-60) H. pylori IgG Anti body Negative (Negative) Imaging Data ^: CT Abd/Pel: Attestation: I personally reviewed and interpreted this imaging study as follows: Radiologist's impression: [address] [address] [address] Scan Report Signed Patient: Elizabeth Sanders Unit #: [id number] : 1945 Age/Sex: 76 / F ADM Date: 01/18/21 Loc: ER Room/Bed: Attending Dr: Ordering Provider/Ordering MD: Lola Swanson MD Date of Service: 01/18/21 Procedure(s): CT abdomen pelvis w con* [id number] Accession Number(s): [id number] Report Number: [id number] PROCEDURE INFORMATION: Exam: CT Abdomen And Pelvis With Contrast Exam date and time: 01/18/2021 12:54 AM Age: 76 years old Clinical indication: Abdominal pain; Generalized; Prior surgery; Surgery date: 6+ months; Surgery type: Gb; Additional info: Abd pain TECHNIQUE: Imaging protocol: Computed tomography of the abdomen and pelvis with contrast. Radiation optimization: All CT scans at this facility use at least one of these dose optimization techniques: automated exposure control; mA and/or kV adjustment per patient size (includes targeted exams where dose is matched to clinical indication); or iterative reconstruction. Contrast material: OMNI 300; Contrast volume: 95 ml; Contrast route: INTRAVENOUS (IV); COMPARISON: CT abdomen pelvis w con* [id number] 09/12/2020 10:49 PM RADIATION DOSE METRICS: Total DLP (mGy-cm): 1021.32 FINDINGS: Liver: Scattered liver granulomas. Gallbladder and bile ducts: Status post cholecystectomy with compensatory biliary ductal dilation. Pancreas: No ductal dilation. Spleen: There is scattered splenic granulomas. Adrenal glands: Normal. No mass. Kidneys and ureters: No hydronephrosis. Stomach and bowel: Barium limits evaluation due dense streak artifact. There dilated loops of small bowel. Several dilated loops in the pelvis are not well evaluated due to the significant streak artifact. However, there appears to be an area of mesenteric twisting in the left abdomen on axial images 46-48. There is barium noted within the more distal small bowel loops and the colon up to the level of the rectum. Differential includes ileus or partial bowel obstruction in the appropriate clinical context Appendix: The appendix not identified. Intraperitoneal space: No free air. Small amount of ascites noted in the right upper quadrant. Vasculature: No abdominal aortic aneurysm. Lymph nodes: No enlarged lymph nodes. Urinary bladder: Unremarkable as visualized. Reproductive: The uterus and adnexal structures are not well visualized due to dense streak artifact. Bones/joints: Unremarkable. No acute fracture. Soft tissues: Unremarkable. CT/CT abdomen pelvis w con* [id number] IMPRESSION: Barium limits evaluation due dense streak artifact. There dilated loops of small bowel. Several dilated loops in the pelvis are not well evaluated due to the significant streak artifact. However, there appears to be an area of mesenteric twisting in the left abdomen on axial images 46-48. There is barium noted within the more distal small bowel loops and the colon up to the level of the rectum. Differential includes ileus or partial bowel obstruction in the appropriate clinical context. No free air. Small amount of fluid noted in the right upper quadrant. Radiation Dose CTDIVOL = (mGy): DLP = 1021.32 (mGy-cm) Dictated By: Srinivas Larose MD Signed By: Srinivas Larose MD Signed Date/Time: 01/18/21343 DD/ Discharge Plan Discharge Patient Disposition: Home Clinical Impression: Abdominal pain Qualifiers: Abdominal location: generalized Qualified Code(s): R10.84 - Generalized abdominal pain Condition: Stable Prescriptions: New hydrocodone-acetaminophen 5-325 mg tablet 1 tab PO Q6H PRN (Reason: pain) Qty: 14 RF: 0 No Action selenium 200 mcg capsule 200 mcg PO DAILY RF: 0 fenofibrate 150 mg capsule 150 mg PO DAILY RF: 0 furosemide [Lasix] 20 mg tablet 20 mg PO DAILY RF: 0 aspirin 81 mg tablet,delayed release (DR/EC) 81 mg PO DAILY RF: 0 Hold Instructions: Resume on 05/22/20. magnesium 250 mg tablet 250 mg PO DAILY RF: 0 fluticasone propionate [Flonase Allergy Relief] 50 mcg/actuation spray,suspension 2 spray INTRANASAL DAILY RF: 0 Protonix 40 mg tablet,delayed release (DR/EC) 40 mg PO DAILY 30 Days Qty: 30 RF: 2 amlodipine 2.5 mg tablet 2.5 mg PO DAILY Qty: 30 RF: 1 Poly-Iron 150 mg iron capsule 150 mg PO BID RF: 0 ciprofloxacin HCl 500 mg tablet 500 mg PO BID Qty: 14 RF: 0 metoclopramide HCl 10 mg tablet 10 mg PO Q6H PRN (Reason: nausea and vomiting) Qty: 14 RF: 0 Discharge Orders: Discharge ED (Routine); Ordered 01/18/21 Ordered By: Lola Swanson Referrals: Rima Brown MD [Primary Care Provider] - Donita,Jesse Larson MD [Physician] - 1-3 days Discharge Diet: Advance as tolerated Discharge Activity: Resume usual activity Patient Instructions: Abdominal Pain (ED), Opioid Safety Coding Level of Care Code ED Aerobics Teacher for Chg Fwd Exam Comprehensive
[2021-01-18 01:38] LABS: Basophils % 0.2 %; Eosinophils % 0.2 %; Hematocrit 39.4 % (37.0-47.0); Lymphocytes % 8.3 %; Mean Corpuscular Hemoglobin 31.5 pg (28.0-34.0); Mean Corpuscular Volume 95.4 fl (81-99); Mean Platelet Volume 11.7 fL (7.4-10.4); Monocytes # 0.5 10^3/uL (0.2-0.9); Monocytes % 3.7 %; Neutrophils # 10.79 10^3/uL (1.8-7.7); Neutrophils % 87.4 %; Nucleated Red Blood Cells % 0 %; Platelet Count 237 10^3/cmm (130-400); Red Blood Count 4.13 10^6/uL (4.1-5.3); Red Cell Distribution Width 12.4 % (12.1-15.1); White Blood Count 12.4 10^3/uL (4.0-10.0)
[2021-01-18] MEDS: sodium chloride 0.9% 500 ML 999 ML IV (01:45)
[2021-01-18] MEDS: metoclopramide 5 mg/mL SDV 2 mL 10 MG IVP (01:45)
[2021-01-18 01:52] LABS: H. Pylori IgG Antibody Negative (Negative)
[2021-01-18 02:06] LABS: Alanine Aminotransferase 15 U/L (0-33); Albumin Level 3.9 g/dL (3.5-5.2); Alkaline Phosphatase 83 IU/L (35-105); Anion Gap 17.3 (5-19); Aspartate Amino Transferase 26 U/L (0-32); Blood Urea Nitrogen 30 mg/dL (8-23); Calcium 10.9 mg/dL (8.5-10.5); Carbon Dioxide 21 mmol/L (22-29); Chloride 103 mmol/L (98-107); Globulin 3.5 g/dL (1.3-4.6); Glucose 123 mg/dL (65-115); Lipase 75 U/L (13-60); Osmolality Calculated 292 mOsm/kg (285-295); Potassium 4.3 mmol/L (3.5-5.1); Sodium 137 mmol/L (136-145); Total Bilirubin 0.4 mg/dL (0.15-1.2); Total Protein 7.4 g/dL (6.6-8.7)
[2021-01-18] MEDS: iohexol 300 mg/mL 100 mL Btl IV (02:21)
[2021-01-18] MEDS: ondansetron 2 mg/ML SDV 2 mL 4 MG IVP (03:17)
[2021-01-18] MEDS: morphine 4 mg/mL SDV 1 mL IVP (03:17)
[2021-01-18 04:18] VITALS: BP 178/71; RESP 17; TEMP 37.3; O2SAT 98
--- NOTE | 2021-01-18 10:59 | DCPLANNER ---
plan manager had message to schedule a follow up appointment for patient with Dr. Duckworth. plan manager faxed patients information to the office of Dr. Duckworth. Patients information will be printed and reviewed. Clinic will call patient with appointment information.
--- NOTE | 2021-02-24 11:26 | DCPLANNER ---
Patient had an appointment scheduled with Dr. Duckworth - appointment was cancelled.
== END 2021-01-18 04:19 | disposition home or self-care (01) ==
PROVIDERS: Physician Assistant; Emergency Provider Emergency Medicine; PCP Internal Medicine
DX: R10.84 Generalized abdominal pain (principal); Z79.82 Long term (current) use of aspirin
CPT/HCPCS: 74177; 80053; 83690; 85025; 86677; 87040; 96374; 96375; 99283; J2270; J2405; J2765; J7040; Q9967

== ENCOUNTER 2021-01-20 14:05 | Outpatient (CLI) | payer MEDICARE, SELFPAY ==
--- NOTE | 2021-01-20 14:25 | XR_ITS ---
WS: [id number] ABDOMEN KUB CLINICAL INFORMATION: Abdominal pain and bloating COMPARISON: January 16, [address] January 18, 2021 FINDINGS: Residual barium and oral contrast in the colon. Cholecystectomy clips.Sigmoid diverticuli. Colon appe ars decompressed. Dilated air-filled loops of small bowel is similar in appearance to January 18 1. Bowel distention appears slightly improved. No air-fluid levels. XR/XR KUB [id number] Impression: 1. Residual barium and oral contrast in the colon improved from the prior radi ograph January 16, 2021. 2. Colon appears decompressed with a few sigmoid diverticuli. 3. Persistent gaseous distention of small bowel loops although improved compar ed to the prior recent CT. No air-fluid levels.
== END 2021-01-20 14:06 | disposition home or self-care (01) ==
PROVIDERS: PCP Internal Medicine; Visit Provider Internal Medicine
DX: R10.9 Unspecified abdominal pain (principal); R14.0 Abdominal distension (gaseous); K57.30 Diverticulosis of large intestine without perforation or abscess without bleeding
CPT/HCPCS: 74018

== ENCOUNTER 2021-01-28 06:20 | Outpatient (RCR) | payer MEDICARE, SELFPAY ==
[2021-01-24] MEDS: CUPRIC CHLORIDE IV (14:00)
[2021-01-24] MEDS: SODIUM CHLORIDE 0.9% IV (14:00)
[2021-01-25] MEDS: SODIUM CHLORIDE 0.9% IV (13:35)
[2021-01-25] MEDS: CUPRIC CHLORIDE IV (13:35)
[2021-01-26] MEDS: CUPRIC CHLORIDE IV (13:20)
[2021-01-26] MEDS: SODIUM CHLORIDE 0.9% IV (13:20)
[2021-01-27] MEDS: CUPRIC CHLORIDE IV (13:30)
[2021-01-27] MEDS: SODIUM CHLORIDE 0.9% IV (13:30)
[2021-01-28] MEDS: CUPRIC CHLORIDE IV (08:30)
[2021-01-28] MEDS: SODIUM CHLORIDE 0.9% IV (08:30)
== END 2021-02-06 23:59 | disposition home or self-care (01) ==
LOC: ONCMED 06:20
PROVIDERS: PCP Internal Medicine; Visit Provider Internal Medicine Medical Oncology
DX: E61.0 Copper deficiency (principal); D50.9 Iron deficiency anemia, unspecified; A04.71 Enterocolitis due to Clostridium difficile, recurrent; Z79.899 Other long term (current) drug therapy
CPT/HCPCS: 96365; 96366; J3490; J7050

== ENCOUNTER 2021-02-18 10:58 | Outpatient (CLI) | payer MEDICARE, SELFPAY ==
--- NOTE | 2021-02-18 11:03 | MM_ITS ---
WS: [id number] BILATERAL DIGITAL SCREENING MAMMOGRAPHY WITH CAD CLINICAL INFORMATION: SCREENING HISTORY: Screening mammogram. No current complaints. COMPARISON: None. TECHNIQUE: Bilateral CC and MLO views. FINDINGS: The breasts are composed of heterogeneous fibroglandular density tissue, which can limit the detectio n of small underlying mass lesions. Biopsy marker right breast. Punctate and secretory calcifications bilaterally. Suspicious nonspecific calcifications outer RIGHT breast near the chest wall. Additional adjacent clu ster of nonspecific calcifications mid depth RIGHT breast Additional cluster of calcifications posterior depth LEFT breast near the chest wall best seen on the MLO view. Recommend spot compression and magnification views of these areas. MM/[place] [id number] IMPRESSION: BI-RADS: 0-Incomplete: Need additional imaging evaluation FOLLOW UP: Need Additional Imaging Recommend bilateral diagnostic mammography with spot magnification views of the above-described calcifications.
== END 2021-02-18 10:59 | disposition home or self-care (01) ==
LOC: RADSHAW 11:00
PROVIDERS: PCP Internal Medicine; Visit Provider Internal Medicine
DX: Z12.31 Encounter for screening mammogram for malignant neoplasm of breast (principal)
CPT/HCPCS: 77067

== ENCOUNTER 2021-04-21 10:43 | Outpatient (CLI) | payer MEDICARE, SELFPAY | END 2021-04-21 10:44 | disposition home or self-care (01) | LOC: LAB 10:46 | PROVIDERS: PCP Internal Medicine; Visit Provider Nurse Practitioner Family | DX: R19.7 Diarrhea, unspecified (principal) | CPT/HCPCS: 87493; 87506 ==

== ENCOUNTER 2021-06-03 20:28 | Emergency (ER) | payer MEDICARE, SELFPAY ==
--- NOTE | 2021-06-03 20:30 | XRR_ITS ---
PROCEDURE INFORMATION: Exam: XR Chest Exam date and time: 06/03/2021 8:30 PM Age: 76 years old Clinical indication: Sternal or substernal pain; Patient HX: C/O epigastric pain into chest; Additional info: Chest pain TECHNIQUE: Imaging protocol: XR of the chest. Views: 1 view. COMPARISON: CR XR chest 1V portable [id number] 09/12/2020 7:20 PM FINDINGS: Lungs: There is a 1.5 cm calcified nodule in the right mid lung, consistent with a granuloma, similar to prior study. The left lung is clear. Pulmonary vasculature within normal limits. Pleural spaces: No visible pneumothorax or pleural effusion. Heart/Mediastinum: Cardiomediastinal silhouette contour is within normal limits. Bones/joints: No emergent findings identified. XR/XR chest 1V portable [id number] IMPRESSION: 1. No radiographic findings of acute cardiopulmonary disease.
--- NOTE | 2021-06-03 20:30 | ECG_ITS ---
[facility] Test Date: 2021-06-03 Pat Name: Elizabeth Sanders Department: Room: Gender: Female Relief Pharmacist: : 1945 Requested By: Dorian Nieto Order Number: [id number] Reading MD: Ajay Mcnamara M.D. Measurements Intervals [place] Rate: 71 P: -33 MN: 140 QRS: 2 QRSD: 133 T: -25 QT: 401 QTc: 438 Interpretive Statements SINUS RHYTHM RIGHT BUNDLE BRANCH BLOCK [120+ ms QRS DURATION, UPRIGHT V1, 40+ ms S IN I/aVL/V4/V5/V6] No previous ECG available for comparison Electronically Signed On 06-04-2021 6:59:09 KETTLE HAND by Ajay Mcnamara M.D. [email or web address]
[2021-06-03 20:42] VITALS: BP 106/76; PULSE 70; RESP 16; TEMP 36.7; O2SAT 93; BMI 20.7
[2021-06-03 20:50] LABS: Basophils % 0.2 %; Eosinophils # 0.5 10^3/uL (0.0-0.8); Eosinophils % 5.3 %; Hematocrit 37.3 % (37.0-47.0); Hemoglobin 12.1 g/dL (11.5-15.3); Lymphocytes # 2.2 10^3/uL (0.8-4.8); Lymphocytes % 25.4 %; Mean Corpuscular HGB Conc 32.4 g/dL (30.0-36.0); Mean Corpuscular Hemoglobin 30.3 pg (28.0-34.0); Mean Corpuscular Volume 93.5 fl (81-99); Monocytes # 0.4 10^3/uL (0.2-0.9); Monocytes % 5.2 %; Neutrophils # 5.42 10^3/uL (1.8-7.7); Neutrophils % 63.4 %; Nucleated Red Blood Cells % 0 %; Platelet Count 345 10^3/cmm (130-400); Red Blood Count 3.99 10^6/uL (4.1-5.3); Red Cell Distribution Width 12.6 % (12.1-15.1); White Blood Count 8.5 10^3/uL (4.0-10.0)
[2021-06-03 21:03] LABS: Blood Urea Nitrogen 20 mg/dL (8-23); Calcium 9.6 mg/dL (8.5-10.5); Carbon Dioxide 26 mmol/L (22-29); Chloride 98 mmol/L (98-107); Glucose 90 mg/dL (65-115); Osmolality Calculated 278 mOsm/kg (285-295); Sodium 133 mmol/L (136-145)
[2021-06-03 21:04] LABS: Troponin(5th) Baseline 17 ng/L (0-10)
--- NOTE | 2021-06-03 21:04 | ED_ITS ---
Documented by User: Dimitrios Greene DO 06/04/21 01:45 HPI - Chest Pain General: Chief Complaint: Chest Pain Stated Complaint: CP Time Seen by Provider: 06/03/21 20:30 History of Present Illness: 76 yo female with chest discomfort radiating to the back and shoulders. [facility], [facility] ED PFSH: Medical History Abnormal weight loss Bloating Hiatal hernia Surgical History History of laparoscopic cholecystectomy Family History Denies family history of Anesthesia complication Bleeding disorder Social History Smoking and tobacco status: never smoked Second hand smoke exposure: No Alcohol intake: never Adopted: No Caregiver/support person: Yes Lives independently: Yes Household members: spouse Housing: House Marital status: service: No Current occupational status: retired Current occupational exposures/hazards: No Pets and animals: No History of recent travel: No Sexually active: No Current gender identity: Female Tessa/Shinto: [employer] Vital Signs: Vital signs: Vital Signs Temperature 97.5 F L 06/04/21 00:18 Pulse Rate 85 06/04/21 00:18 Respiratory Rate 18 06/04/21 00:18 Blood Pressure 145/79 06/04/21 00:18 Pulse Oximetry 98 06/04/21 00:18 MDM - Chest Pain Medical Decision Making 76-year-old female checked out to me by the previous physician at shift change. This lady complains of epigastric and chest discomfort radiating into her back and shoulders. She has a history of gastritis/gastroparesis, but notes that th is feels different . Pain is improved after Haldol and Tylenol, but not resolved. She is given 50 mcg of fentanyl to improve pain. EKG did not show acute ST changes. CBC is normal. BMP is essentially normal. Troponin did not elevated 2 hours. Chest x-ray was negative for acute findings. She will be allowed home to follow-up with her primary care physician. Lab Data : 06/03/21 20:20 06/03/21 20:20 Radiology Impressions Chest X-Ray 06/03/21 20:30 IMPRESSION: 1. No radiographic findings of acute cardiopulmonary disease. Laboratory Results WBC 8.5 10^3/uL (4.0-10.0) 06/03/21 20:20 RBC 3.99 10^6/uL (4.1-5.3) L 06/03/21 20:20 Hgb 12.1 g/dL (11.5-15.3) 06/03/21 20:20 Hct 37.3 % (37.0-47.0) 06/03/21 20:20 MCV 93.5 fl (81-99) 06/03/21 20:20 MCH 30.3 pg (28.0-34.0) 06/03/21: MCHC 32.4 g/dL (30.0-36.0) 06/03/21 20:20 RDW 12.6 % (12.1-15.1) 06/03/21 20:20 Plt Count 345 10^3/cmm (130-400) 06/03/21 20:20 MPV 11.0 fL (7.4-10.4) H 06/03/21 20:20 Neut % (Auto) 63.4 % 06/03/21 20:20 Lymph % (Auto) 25.4 % 06/03/21 20:20 [place] % (Auto) 5.2 % 06/03/21 20:20 Eos % (Auto) 5.3 % 06/03/21 20:20 Baso % (Auto) 0.2 % 06/03/21 20:20 Neut # (Auto) 5.42 10^3/uL (1.8-7.7) 06/03/21 20:20 Lymph # (Auto) 2.2 10^3/uL (0.8-4.8) 06/03/21 20:20 [place] # (Auto) 0.4 10^3/uL (0.2-0.9) 06/03/21 20:20 Eos # (Auto) 0.5 10^3/uL (0.0-0.8) 06/03/21 20:20 Baso # (Auto) 0.0 10^3/uL (0.0-0.1) 06/03/21 20:20 Nucleated RBC % (auto) 0 % 06/03/21 20:20 Nucleated RBCs # 0.0 /100WBC 06/03/21 20:20 Sodium 133 mmol/L (136-145) L 06/03/21 20:20 Potassium 4.0 mmol/L (3.5-5.1) 06/03/21 20:20 Chloride 98 mmol/L (98-107) 06/03/21 20:20 Carbon Dioxide 26 mmol/L (22-29) 06/03/21 20:20 Anion Gap 13.0 (5-19) 06/03/21 20:20 BUN 20 mg/dL (8-23) 06/03/21 20:20 Creatinine 0.8 mg/dL (0.5-0.9) 06/03/21 20:20 GFR Calculation Not Reportable 06/03/21 20:20 Glucose 90 mg/dL (65-115) 06/03/21 20:20 Calculated Osmolality 278 mOsm/kg (285-295) L 06/03/21 20:20 Calcium 9.6 mg/dL (8.5-10.5) 06/03/21 20:20 Troponin T Baseline 17 ng/L (0-10) H 06/03/21 20:20 Troponin T 120 Minute 16.54 ng/L (0-10) H 06/03/21 22:52 Delta Troponin T -0.46 ABS# (0-10) L 06/03/21 22:52 Discharge Plan Discharge Patient Disposition: Home Clinical Impression: Chest pain Condition: Stable Prescriptions: No Action vancomycin 125 mg capsule 125 mg PO QID 0RF vicki's leg cramps PO 0RF Rx Instructions: 2 in the AM 2 in the PM cholecalciferol (vitamin D3) [Vitamin D3] 25 mcg (1,000 unit) capsule 25 mcg PO DAILY 0RF fenofibrate 150 mg capsule 150 mg PO DAILY 0RF furosemide [Lasix] 20 mg tablet 20 mg PO DAILY 0RF aspirin 81 mg tablet,delayed release (DR/EC) 81 mg PO DAILY 0RF Hold Instructions: Resume on 05/22/20. fluticasone propionate [Flonase Allergy Relief] 50 mcg/actuation spray,suspension 2 spray INTRANASAL DAILY 0RF Rx Instructions: administer into each nostril Protonix 40 mg tablet,delayed release (DR/EC) 40 mg PO DAILY 30 Days Qty: 30 2RF amlodipine 2.5 mg tablet 2.5 mg PO DAILY Qty: 30 1RF Discharge Orders: Discharge ED (Routine); Ordered 06/03/21 Ordered By: Dimitrios Greene Referrals: Rima Brown MD [Primary Care Provider] - 1-3 days Patient Instructions: Chest Pain (ED) Activity Restrictions/Additional Instructions: Return for return of or worsening chest pain, shortness of breath, fever greater than 100, vomiting liquids or medications, any other concerning symptoms. Follow-up with your doctor this coming week. Coding Level of Care Code ED Recreation Adviser for Connor Meza
[2021-06-03] MEDS: sodium chloride 0.9% 1,000 ML 999 ML IV (21:11)
[2021-06-03] MEDS: haloperidol inj 5 mg/mL INJ 1 mL 2.5 MG IM (21:11)
[2021-06-03] MEDS: acetaminophen 500 mg Tablet 1000 MG PO (21:43)
[2021-06-03] MEDS: metoclopramide 5 mg/mL SDV 2 mL 10 MG IVP (21:53)
[2021-06-03 23:16] LABS: Troponin 5 2HR 16.54 ng/L (0-10); Troponin 5 2HR Delta -0.46 ABS# (0-10)
[2021-06-04 00:02] VITALS: RESP 18
[2021-06-04] MEDS: fentaNYL 50 mcg/mL INJ 2mL IVP (00:02)
[2021-06-04 00:18] VITALS: BP 145/79; PULSE 85; RESP 18; TEMP 36.4; O2SAT 98
--- NOTE | 2021-06-08 10:11 | DCPLANNER ---
Addendum entered by Felicia Stahl 07/28/21 15:00: patient Original Note: relations manager had message to schedule an outpatient stress test for patient. relations manager emailed patients information to Umm at centralized scheduling. Centralized scheduling will call patient with appointment information.
== END 2021-06-04 00:20 | disposition home or self-care (01) ==
PROVIDERS: Emergency Medicine; Emergency Provider Emergency Medicine; PCP Internal Medicine
DX: R07.9 Chest pain, unspecified (principal)
CPT/HCPCS: 36415; 71045; 80048; 84484; 85025; 93005; 96361; 96372; 96374; 96375; 99284; J1630; J2765; J3010; J7030

== ENCOUNTER 2021-06-07 13:21 | Outpatient (CLI) | payer MEDICARE, SELFPAY ==
[2021-06-07] MEDS: CUPRIC CHLORIDE IV (14:21)
[2021-06-07] MEDS: SODIUM CHLORIDE 0.9% IV (14:21)
[2021-06-07 14:37] LABS: Basophils # 0.1 10^3/uL (0.0-0.1); Basophils % 0.3 %; Eosinophils # 0.2 10^3/uL (0.0-0.8); Eosinophils % 1.2 %; Hematocrit 33.9 % (37.0-47.0); Hemoglobin 11.3 g/dL (11.5-15.3); Lymphocytes # 0.8 10^3/uL (0.8-4.8); Lymphocytes % 4.6 %; Mean Corpuscular HGB Conc 33.3 g/dL (30.0-36.0); Mean Corpuscular Hemoglobin 30.3 pg (28.0-34.0); Mean Corpuscular Volume 90.9 fl (81-99); Mean Platelet Volume 10.7 fL (7.4-10.4); Monocytes # 0.9 10^3/uL (0.2-0.9); Monocytes % 5.2 %; Neutrophils # 15.19 10^3/uL (1.8-7.7); Nucleated Red Blood Cells % 0 %; Platelet Count 438 10^3/cmm (130-400); Red Blood Count 3.73 10^6/uL (4.1-5.3); Red Cell Distribution Width 13.2 % (12.1-15.1); White Blood Count 17.3 10^3/uL (4.0-10.0)
[2021-06-07 15:03] LABS: Alanine Aminotransferase 18 U/L (0-33); Alkaline Phosphatase 96 IU/L (35-105); Anion Gap 18.3 (5-19); Aspartate Amino Transferase 24 U/L (0-32); Blood Urea Nitrogen 74 mg/dL (8-23); Calcium 9.6 mg/dL (8.5-10.5); Carbon Dioxide 23 mmol/L (22-29); Chloride 95 mmol/L (98-107); Globulin 3.5 g/dL (1.3-4.6); Glucose 98 mg/dL (65-115); Iron 19 ug/dL (37-145); Lactate Dehydrogenase 168 U/L (135-214); Osmolality Calculated 296 mOsm/kg (285-295); Percent Saturation 11.9 % (20-50); Potassium 4.3 mmol/L (3.5-5.1); Sodium 132 mmol/L (136-145); Total Bilirubin 0.4 mg/dL (0.15-1.2); Total Iron Binding Capacity 159 mcg/dl; Total Protein 6.5 g/dL (6.6-8.7); Unsaturated Iron Binding 140 ug/dL (112-347)
[2021-06-07 15:04] LABS: Homocysteine 20.14
[2021-06-07 15:18] LABS: Vitamin B12 800 pg/mL (232-1245)
[2021-06-13 18:03] LABS: Methylmalonic Acid 297 nmol/L (87-318)
== END 2021-06-07 13:22 | disposition home or self-care (01) ==
PROVIDERS: PCP Internal Medicine; Visit Provider Internal Medicine Medical Oncology
DX: D64.9 Anemia, unspecified (principal); R63.4 Abnormal weight loss; R61 Generalized hyperhidrosis; K31.84 Gastroparesis; K86.89 Other specified diseases of pancreas; D86.9 Sarcoidosis, unspecified; Z79.52 Long term (current) use of systemic steroids; I12.9 Hypertensive chronic kidney disease with stage 1 through stage 4 chronic kidney disease, or unspecified chronic kidney disease; E78.5 Hyperlipidemia, unspecified; N18.9 Chronic kidney disease, unspecified; D51.9 Vitamin B12 deficiency anemia, unspecified; A04.71 Enterocolitis due to Clostridium difficile, recurrent; Z79.899 Other long term (current) drug therapy; Z87.09 Personal history of other diseases of the respiratory system
CPT/HCPCS: 80053; 82607; 82746; 83090; 83540; 83550; 83615; 83921; 85025; 96365; J3490

== ENCOUNTER 2021-06-08 13:16 | Outpatient (CLI) | payer MEDICARE, SELFPAY ==
[2021-06-08] MEDS: SODIUM CHLORIDE 0.9% IV (14:08)
[2021-06-08] MEDS: CUPRIC CHLORIDE IV (14:08)
== END 2021-06-08 13:17 | disposition home or self-care (01) ==
PROVIDERS: PCP Internal Medicine; Visit Provider Internal Medicine Hematology & Oncology
DX: D64.9 Anemia, unspecified (principal)
CPT/HCPCS: 96365; J3490; J7050

== ENCOUNTER 2021-06-09 03:41 | Emergency (ER) | payer MEDICARE, SELFPAY ==
[2021-06-09 03:45] VITALS: BP 178/83; PULSE 106; RESP 23; TEMP 37; O2SAT 95; BMI 20.2
--- NOTE | 2021-06-09 03:55 | CTR_ITS ---
PROCEDURE INFORMATION: Exam: CT Abdomen And Pelvis With Contrast Exam date and time: 06/09/2021 3:55 AM Age: 76 years old Clinical indication: Abdominal pain; Generalized; Prior surgery; Surgery date: 1-6 months; Surgery type: Patient states had surgery at outside facility last February for what sounds to be for volvulus. History of gb surgery. ; Patient HX: C/O severe abd pain that has worsened over last two days with nausea. TECHNIQUE: Imaging protocol: Computed tomography of the abdomen and pelvis with contrast. Radiation optimization: All CT scans at this facility use at least one of these dose optimization techniques: automated exposure control; mA and/or kV adjustment per patient size (includes targeted exams where dose is matched to clinical indication); or iterative reconstruction. Contrast material: VISI 320; Contrast volume: 75 ml; Contrast route: INTRAVENOUS (IV); COMPARISON: CT abdomen pelvis w con* [id number] 01/18/2021 2:17 AM RADIATION DOSE METRICS: Total DLP (mGy-cm): 772.23 FINDINGS: Liver: There are scattered granulomas throughout the liver. Gallbladder and bile ducts: The patient has had a cholecystectomy. Pancreas: Normal. No ductal dilation. Spleen: There are scattered granulomas throughout the spleen. Adrenal glands: Normal. No mass. Kidneys and ureters: Normal. No hydronephrosis. Stomach and bowel: There is surgical suture material in the rectum. There is diffuse thickening, mucosal enhancement, inflammation and fluid throughout the entire GI tract consistent with infectious or inflammatory enteritis/colitis. There is focal wall thickening and air extending through the wall of the stomach, near the GE junction which may be due to a perforating ulcer or Boerhaave tear. Appendix: No evidence of appendicitis. Intraperitoneal space: There is moderate free air throughout the upper abdomen consistent with a ruptured viscus. Vasculature: Unremarkable. No abdominal aortic aneurysm. Lymph nodes: Unremarkable. No enlarged lymph nodes. Urinary bladder: Unremarkable as visualized. Reproductive: The patient has had a hysterectomy. Bones/joints: Unremarkable. No acute fracture. Soft tissues: Unremarkable. CT/CT abdomen pelvis w con* [id number] IMPRESSION: Severe diffuse gastroenteritis/colitis throughout the entire GI tract. Free air predominantly in the upper abdomen due to a perforation, likely near the GE junction which may be perforating ulcer or Boerhaave tear. Evidence of prior granulomatous disease. Other surgical changes as described above.
--- NOTE | 2021-06-09 03:57 | W.ED.ABDPA2 ---
HPI - Abdominal Pain General: Chief Complaint: Abdominal Pain Stated Complaint: abd pain Time Seen by Provider: 06/09/21 03:51 Source: patient and EMS Mode of arrival: EMS Limitations: no limitations History of Present Illness: 68-year-old female has a history of bowel surgery at [facility] in February she has had chronic abdominal pain since then. States that over the last 2 days though she has been having increasing pain that is sharp and severe in nature. She states she is also had black stools over the last 2 days. Denies any vomiting denies any weakness denies any worsening improving factors. Associated Symptoms: Reports hematochezia and melena; Denies chills, dysuria and fever(s) Review of Systems Const: Denies: fever(s), chills, body aches or change in appetite Eyes: Denies: blurry vision or eye discomfort ENMT: Denies: throat pain or dental pain Card: Denies: chest pain Resp: Denies: dyspnea GI: Reports: abdominal pain, hematochezia and melena : Denies: dysuria Musc: Denies: neck pain or back pain Skin/Breast: Denies: rash Neuro: Denies: headache(s) Psych: Denies: depression Eliazar/Lymph: Denies: easy bruising All/Imm: Denies: urticaria PFSH ED PFSH: Medical History Abnormal weight loss Bloating Hiatal hernia Surgical History History of laparoscopic cholecystectomy Family History Denies family history of Anesthesia complication Bleeding disorder Social History Smoking and tobacco status: never smoked Second hand smoke exposure: No Alcohol intake: never Adopted: No Caregiver/support person: Yes Lives independently: Yes Household members: spouse Housing: House Marital status: service: No Current occupational status: retired Current occupational exposures/hazards: No Pets and animals: No History of recent travel: No Sexually active: No Current gender identity: Female Tessa/Hoahaoism: [employer] Physical Exam Const: COMMON NORMALS: patient oriented x3 GENERAL APPEARANCE: in distress and ill appearing HENMT: COMMON NORMALS: normocephalic and atraumatic HEAD & SCALP: normocephalic and atraumatic Eye: COMMON NORMALS: Equal, round and reactive pupils present and EOMs intact bilaterally PUPIL: Yes Equal, round and reactive pupils present Neck/C-Spine: COMMON NORMALS: full ROM and supple Chest: COMMONS NORMALS: normal inspection of the chest and normal palpation of entire chest wall Resp: COMMON NORMALS: normal respiratory effort, No retractions, No use of accessory muscles and clear to auscultation bilaterally AUSCULTATION: clear to auscultation bilaterally Cardio: COMMON NORMALS: regular rate, regular rhythm and No murmurs present (Cardio) RATE: regular rate RHYTHM: regular rhythm GI: COMMON NORMALS: no masses PALPATION: Yes Firmness to palpation present (GI) and Yes Tenderness to palpation present (GI) (diffuse) OTHER: black stool heme positive Extremity: COMMON NORMALS: normal to inspection and full ROM Neuro: COMMON NORMALS: patient oriented x3, moves all extremities and no focal motor deficits Psych: COMMON NORMALS: mental status grossly normal, Normal thought process present and cooperative THOUGHT PROCESS: Normal thought process present Skin: COMMON NORMALS: no rashes or lesions noted and no wounds GENERAL SKIN EXAM: no rashes or lesions noted Course Vital Signs: Vital signs: Vital Signs Temperature 98.6 F 06/09/21 03:45 Pulse Rate 106 H 06/09/21 03:45 Respiratory Rate 23 H 06/09/21 03:45 Blood Pressure 178/83 06/09/21 03:45 Pulse Oximetry 95 06/09/21 03:45 MDM - Abdominal Pain Medical Decision Making Patient presents here with increasing abdominal pain CT scan here shows a bowel perforation. There is also had some black tarry stool did give her a dose of Protonix her blood pressure here has been stable patient given IV antibiotics spoke to surgeon on-call Dr. Varghese who is going to take to the operating room. Lab Data : 06/09/21 04:16 06/09/21 04:16 Labs/Radiology: Radiology Impressions Abdomen/Pelvis CT 06/09/21 03:55 IMPRESSION: Severe diffuse gastroenteritis/colitis throughout the entire GI tract. Free air predominantly in the upper abdomen due to a perforation, likely near the GE junction which may be perforating ulcer or Boerhaave tear. Evidence of prior granulomatous disease. Other surgical changes as described above. ADDENDUM: 06/09/21 0511 THIS REPORT CONTAINS FINDINGS THAT MAY BE CRITICAL TO PATIENT CARE. The findings were verbally communicated via telephone conference at 5:10 AM PEACE OFFICER on 06/09/2021 with ALLISON KWON. The findings were acknowledged and understood. Laboratory Results WBC 10.0 10^3/uL (4.0-10.0) 06/09/21 04:16 RBC 2.90 10^6/uL (4.1-5.3) L 06/09/21 04:16 Hgb 8.8 g/dL (11.5-15.3) L 06/09/21 04:16 Hct 26.6 % (37.0-47.0) L 06/09/21 04:16 MCV 91.7 fl (81-99) 06/09/21 04:16 MCH 30.3 pg (28.0-34.0) 06/09/21 04:16 MCHC 33.1 g/dL (30.0-36.0) 06/09/21 04:16 RDW 13.1 % (12.1-15.1) 06/09/21 04:16 Plt Count 387 10^3/cmm (130-400) 06/09/21 04:16 MPV 10.1 fL (7.4-10.4) 06/09/21 04:16 Neut % (Auto) 83.4 % 06/09/21 04:16 Lymph % (Auto) 7.7 % 06/09/21 04:16 [place] % (Auto) 6.0 % 06/09/21 04:16 Eos % (Auto) 1.4 % 06/09/21 04:16 Baso % (Auto) 0.4 % 06/09/21 04:16 Neut # (Auto) 8.33 10^3/uL (1.8-7.7) H 06/09/21 04:16 Lymph # (Auto) 0.8 10^3/uL (0.8-4.8) 06/09/21 04:16 [place] # (Auto) 0.6 10^3/uL (0.2-0.9) 06/09/21 04:16 Eos # (Auto) 0.1 10^3/uL (0.0-0.8) 06/09/21 04:16 Baso # (Auto) 0.0 10^3/uL (0.0-0.1) 06/09/21 04:16 Nucleated RBC % (auto) 0 % 06/09/21 04:16 Nucleated RBCs # 0.0 /100WBC 06/09/21 04:16 Sodium 133 mmol/L (136-145) L 06/09/21 04:16 Potassium 4.7 mmol/L (3.5-5.1) 06/09/21 04:16 Chloride 101 mmol/L (98-107) 06/09/21 04:16 Carbon Dioxide 22 mmol/L (22-29) 06/09/21 04:16 Anion Gap 14.7 (5-19) 06/09/21 04:16 BUN 90 mg/dL (8-23) H* 06/09/21 04:16 Creatinine 0.8 mg/dL (0.5-0.9) 06/09/21 04:16 GFR Calculation Not Reportable 06/09/21 04:16 Glucose 135 mg/dL (65-115) H 06/09/21 04:16 Calculated Osmolality 306 mOsm/kg (285-295) H 06/09/21 04:16 Lactate 0.8 mmol/L (0.5-2.2) 06/09/21 04:41 Calcium 8.4 mg/dL (8.5-10.5) L 06/09/21 04:16 Total Bilirubin 0.4 mg/dL (0.15-1.2) 06/09/21 04:16 AST 27 U/L (0-32) 06/09/21 04:16 ALT 17 U/L (0-33) 06/09/21 04:16 Alkaline Phosphatase 78 IU/L (35-105) 06/09/21 04:16 Total Protein 5.1 g/dL (6.6-8.7) L 06/09/21 04:16 Albumin 2.3 g/dL (3.5-5.2) L 06/09/21 04:16 Globulin 2.8 g/dL (1.3-4.6) 06/09/21 04:16 Lipase 36 U/L (13-60) 06/09/21 04:16 Urine Color Yellow (Yellow) 06/09/21 04:48 Urine Appearance Clear (CLEAR) 06/09/21 04:48 Urine pH 5 (5-7) 06/09/21 04:48 Ur Specific [place] 1.010 (1.005-1.030) 06/09/21 04:48 Urine Protein Neg (Negative) 06/09/21 04:48 Urine Glucose (UA) Norm (Normal) 06/09/21 04:48 Urine Ketones Negative (Negative) 06/09/21 04:48 Urine Blood Neg (Negative) 06/09/21 04:48 Urine Nitrate Negative (Negative) 06/09/21 04:48 Urine Bilirubin 2+ (Negative) H 06/09/21 04:48 Urine Urobilinogen Norm mg/dL (Negative) 06/09/21 04:48 Ur Leukocyte Esterase Negative (Negative) 06/09/21 04:48 Blood Type O Positive 06/09/21 04:16 Rho(D) Type Positive 06/09/21 04:16 Antibody Screen Negative 06/09/21 04:16 Critical Care Time Critical Care Time: Critical Care Time: Yes Total Critical Care Time: 40 Attestation: The high probability of a clinically significant, sudden or life threatening deterioration of the patient's GI system(s) required my full and direct attention, intervention and personal management. The critical care time is as shown. This time is in addition to time spent performing any reported procedures but includes the following: [x] Data and vital sign review and interpretation [x] Patient assessment, examination and intervention [x] Documentation [x] Medication orders and management Discharge Plan Discharge Patient Disposition: Admitted As Inpatient Clinical Impression: Bowel perforation Condition: Stable Coding Level of Care Code ED Graphite Grinder for Laurag Fwd Exam Comprehensive
[2021-06-09] MEDS: HYDROmorphone 1 mg/mL INJ 1 mL IVP (04:21)
[2021-06-09] MEDS: sodium chloride 0.9% 1,000 ML 999 ML IV (04:21)
[2021-06-09] MEDS: ondansetron 2 mg/ML SDV 2 mL 4 MG IVP (04:21)
[2021-06-09 04:22] LABS: Basophils % 0.4 %; Eosinophils # 0.1 10^3/uL (0.0-0.8); Eosinophils % 1.4 %; Hematocrit 26.6 % (37.0-47.0); Hemoglobin 8.8 g/dL (11.5-15.3); Lymphocytes # 0.8 10^3/uL (0.8-4.8); Lymphocytes % 7.7 %; Mean Corpuscular HGB Conc 33.1 g/dL (30.0-36.0); Mean Corpuscular Hemoglobin 30.3 pg (28.0-34.0); Mean Corpuscular Volume 91.7 fl (81-99); Mean Platelet Volume 10.1 fL (7.4-10.4); Monocytes # 0.6 10^3/uL (0.2-0.9); Neutrophils # 8.33 10^3/uL (1.8-7.7); Neutrophils % 83.4 %; Nucleated Red Blood Cells % 0 %; Platelet Count 387 10^3/cmm (130-400); Red Cell Distribution Width 13.1 % (12.1-15.1)
[2021-06-09] MEDS: iodixanol 320 mg/mL 100mL Btl IV (04:24)
[2021-06-09] MEDS: pantoprazole 40 mg SDV 80 MG IVP (04:25)
[2021-06-09 04:42] LABS: Alanine Aminotransferase 17 U/L (0-33); Albumin Level 2.3 g/dL (3.5-5.2); Alkaline Phosphatase 78 IU/L (35-105); Anion Gap 14.7 (5-19); Aspartate Amino Transferase 27 U/L (0-32); Calcium 8.4 mg/dL (8.5-10.5); Carbon Dioxide 22 mmol/L (22-29); Chloride 101 mmol/L (98-107); Globulin 2.8 g/dL (1.3-4.6); Glucose 135 mg/dL (65-115); Lipase 36 U/L (13-60); Osmolality Calculated 306 mOsm/kg (285-295); Potassium 4.7 mmol/L (3.5-5.1); Sodium 133 mmol/L (136-145); Total Bilirubin 0.4 mg/dL (0.15-1.2); Total Protein 5.1 g/dL (6.6-8.7)
[2021-06-09 04:44] LABS: Blood Urea Nitrogen 90 mg/dL (8-23); Slide Review Slide Review Perform
[2021-06-09 04:55] LABS: Add Urine Microscopic? NO; Charge for UA Resulting for Rev
[2021-06-09 04:56] LABS: Bilirubin Urine 2+ (Negative); Blood Urine Neg (Negative); Glucose Urine UA Norm (Normal); Ketones Urine Negative (Negative); Leukocyte Esterase Urine Negative (Negative); Nitrate Urine Negative (Negative); Protein Urine Neg (Negative); Urine Appearance Clear (CLEAR); Urine Color Yellow (Yellow); Urobilinogen Urine Norm (Negative); pH Urine 5 (5-7)
[2021-06-09 05:09] LABS: Lactate (Lactic Acid level) 0.8 mmol/L (0.5-2.2)
[2021-06-09] MEDS: levofloxacin-dextrose 5 % 750 MG/150 ML PREMIX 100 MG IV (05:14)
--- NOTE | 2021-06-09 06:10 | P.HP_ITS ---
Providers/Chief Complaint Admitting Physician: Lon Varghese MD Primary Care Provider: Rima Brown MD Chief Complaint: abd pain History of Present Illness Chief Complaint: My tumjason hurEarl History of present illness:Ms.Janet Micah Sanders is a 76 year old female with history of hypertension, chronic anemia, chronic constipation, sarcoidosis and nonintentional weight loss. Presents with history of worsening abdominal pain particularly in the upper part as she has been experiencing this issue since February 2021. Describes the pain as being severe and sharp in nature not being radiated and nothing seems to make it better or worse. patient came to the ER today with worsening nausea and vomiting, denies any hematemesis. But there is a report of black stool per ER physician over the last 2 days. Patient had history of bowel surgery back in [facility] in February 2021. Unfortunately I do not have details of surgery but patient had mentioned that she had some sort of colon twist. Further work-up in the ER showed a WBC count of 10, hemoglobin of 8.8, platelet count 387, creatinine 0.8. Serum lactate 0.8. Normal liver function tests and albumin of 2.[address] scan of the abdomen and pelvis was done and showed: Severe diffuse gastroenteritis/colitis throughout the entire GI tract.? Free air predominantly in the upper abdomen due to a perforation, likely near the GE junction which may be perforating ulcer or Boerhaave tear. Evidence of prior granulomatous disease. Other surgical changes as described above. Patient is well-known to me from previous clinical exposure as she did undergo barium swallow 01/14/2021 1.? Central esophageal traction diverticulum x2. These are often acquired due to calcified lymph nodes in the mediastinum from prior granulomatous disease. Patient does have numerous calcified lymph nodes in the mediastinum as seen on a prior CT from 2016. 2.? No hiatal hernia or reflux. Previous EGD was done in May 2020, and the findings showed retained food in the esophagus, hiatal hernia gastritis and duodenitis General surgery was consulted to evaluate the patient for a potential perforated gastric ulcer. Patient was seen and evaluated emergency department room #14. Patient received a dose of Levaquin and ongoing IV fluids and a Cheatham catheter was inserted with clear urine. Review of Systems General: Reports: 10 or more systems reviewed and unremarkable except in HPI and below Medications/Allergies Home Medications Medication Instructions Recorded Confirmed Last Taken Type aspirin 81 mg tablet,delayed 81 mg PO DAILY 12/22/19 02/02/21 05/18/20 History release fenofibrate 150 mg capsule 150 mg PO DAILY 12/22/19 02/02/21 05/18/20 History fluticasone propionate 50 2 spray INTRANASAL DAILY 12/22/19 02/02/21 05/18/20 History mcg/actuation nasal spray,suspension (Flonase Allergy Relief) furosemide 20 mg tablet (Lasix) 20 mg PO DAILY 12/22/19 06/10/20 Unknown History pantoprazole 40 mg tablet,delayed 40 mg PO DAILY 30 Days #30 tab 10/18/20 02/02/21 Unknown Rx release (Protonix) amlodipine 2.5 mg tablet 2.5 mg PO DAILY #30 tab 01/12/21 02/02/21 Unknown Rx cholecalciferol (vitamin D3) 25 25 mcg PO DAILY 02/02/21 02/02/21 Unknown History mcg (1,000 unit) capsule (Vitamin D3) vicki's leg cramps PO 02/02/21 Unknown History vancomycin 125 mg capsule 125 mg PO QID 02/02/21 02/02/21 Unknown History Allergies Allergy/AdvReac Type Severity Reaction Status Date / Time morphine Allergy Severe ALGY-Anaphy Verified 06/09/21 06:44 laxis Penicillins Allergy Severe ALGY-Hives Verified 06/09/21 06:44 PFSH Acute PFSH: Medical History Abnormal weight loss Bloating Hiatal hernia Surgical History History of laparoscopic cholecystectomy Family History Denies family history of Anesthesia complication Bleeding disorder Social History Smoking and tobacco status: never smoked Second hand smoke exposure: No Alcohol intake: never Adopted: No Caregiver/support person: Yes Lives independently: Yes Household members: spouse Housing: House Marital status: service: No Current occupational status: retired Current occupational exposures/hazards: No Pets and animals: No History of recent travel: No Sexually active: No Current gender identity: Female Tessa/Mormon: Rastafari Vitals/I&O/Wt Last Vital Signs Temp 98.6 F 06/09/21 03:45 Pulse 106 H 06/09/21 03:45 Resp 23 H 06/09/21 03:45 BP 178/83 06/09/21 03:45 Pulse Ox 95 06/09/21 03:45 Weight last 48 hrs Weight 116 lb 4.092 oz Physical Exam Const: COMMON NORMALS: no acute distress and patient oriented x3 EXAM LIMITATIONS: physical limitations (Cachectic) GENERAL APPEARANCE: cooperative NUTRITIONAL APPEARANCE: underweight ORIENTATION/CONSCIOUSNESS: Yes awake, Yes oriented to person, Yes oriented to place and Yes oriented to time HENMT: COMMON NORMALS: normocephalic HEAD & SCALP: normocephalic Eye: COMMON NORMALS: Equal, round and reactive pupils present and no scleral icterus PUPIL: Yes Equal, round and reactive pupils present Lymph: LYMPHATIC: no lymphadenopathy noted Chest: COMMONS NORMALS: normal inspection of the chest Resp: COMMON NORMALS: normal respiratory effort and clear to auscultation bilaterally AUSCULTATION: clear to auscultation bilaterally Cardio: COMMON NORMALS: S1 normal heart sound present and S2 normal heart sound present; negative for No murmurs present (Cardio) HEART SOUNDS: S1 normal heart sound present and S2 normal heart sound present GI: COMMON NORMALS: Soft to palpation; negative for No hepatosplenomegaly present INSPECTION: No normal to inspection and Yes scar (Mid midline scar) PALPATION: Yes Soft to palpation, No Firmness to palpation present (GI), Yes Tenderness to palpation present (GI) (Upper abdomen with mild peritonitis changes), No Guarding due to palpation present (GI), No Rigid due to palpation and No No hepatosplenomegaly present Neuro: COMMON NORMALS: patient oriented x3 SENSORIUM/ORIENTATION: Yes oriented to person, Yes oriented to place and Yes oriented to time Psych: COMMON NORMALS: mental status grossly normal Skin: COMMON NORMALS: no rashes or lesions noted GENERAL SKIN EXAM: no rashes or lesions noted Data : 06/09/21 04:16 06/09/21 04:16 A&P Assessment and plan (1) Acute esophageal ulcer with perforation: After thorough history physical examination and reviewing the chart and images of the CT scan of the abdomen and pelvis today and before with comparative studies and with my personal interpretation. And talking with the radiologist Yosef media relations associate. Further review of the images as well as the comparison CT on 01/18/2021 demonstrates focal thickening in the proximal stomach on both exams, along the lesser curvature which approaches the GE junction.? This may represent a focal tumor within the stomach versus chronic peptic ulcer although this is an atypical location for peptic ulcers. And after further discussing the case with the CT surgery on-call, that there might be a potential need for Cicero Robles exposure if we end up by performing a distal esophageal approach via the chest if it is not applicable via the abdomen. Certainly the patient will require diagnostic laparoscopy for peritoneal washout and with potential repair of the distal esophageal perforatio n with the concern that she may end up by having distal esophagectomy and further esophagojejunostomy. Also a concern as a backup plan that she may require a washout with repair of the distal esophageal perforation and a semicovered stent placement which we do not carry in our facility. Patient is currently hemodynamically stable received a dose of Levaquin and IV fluid resuscitation is ongoing and Cheatham catheter will be placed Due to the complexity of patient's anatomy and potential need for MEDICAL equipments not available in our facility. I did discuss with the patient about potential transfer to a higher level of care. And I did discuss the case over the phone in person with general surgery over [facility] and discussed with him the findings with of the CT scans and previous barium study of the esophagus and incidental findings of the central diverticula which I do n ot believe has nothing to do with the current situation. And also the thought process that the patient may require a potential stent/esophagojejunostomy/feeding jejunostomy. He kindly accepted the transfer to [facility] for further evaluation potential intervention. We will plan to transfer the patient by [facility]. The patient and her spouse agreed on the transfer. Understanding the potential risks benefits alternatives and indications Assurance and education All questions have been answered and all concerns have been addressed to patient's satisfaction. Status: Acute Attestations Medical Necessity Statement*: Patient will require transfer to higher level of care. Coding Level of Care Code Acute Supervisor Volunteer Services for g Fwd Exam Comprehensive Diagnoses Acute esophageal ulcer with perforation K22.10; K22.3
--- NOTE | 2021-06-09 07:17 | PC.NURSE ---
WHILE AT BEDSIDE PT IS IN NAD. PT IS RESTING QUIETLY WITH EYES CLOSED SUPINE IN BED WITH GOOD CHEST RISE AND FALL.
--- NOTE | 2021-06-09 07:40 | PC.NURSE ---
REPORT GIVEN TO FLIGHT RN ASSUMED CARE. PT IS IN NAD. PT DENIES ANY FURTHER NEEDS AT THIS TIME.
[2021-06-09 07:48] VITALS: BP 133/71; PULSE 126; RESP 15; O2SAT 96
== END 2021-06-09 07:50 | disposition admitted as inpatient to this hospital (09) ==
PROVIDERS: Emergency Provider Emergency Medicine; PCP Internal Medicine
DX: K63.1 Perforation of intestine (nontraumatic) (principal)
CPT/HCPCS: 74177; 80053; 81003; 83605; 83690; 85025; 86850; 86900; 96365; 96375; 99284; C9113; J0330; J1100; J1170; J1200; J1956; J2370; J2405; J2704; J3010; J3490; J7030; Q9967